=== PATIENT | female | born 1990 | race Caucasian/White ===

== ENCOUNTER 2017-04-13 13:36 | Emergency (ER) | payer MEDICAID ==
[2015-08-03 12:03] VITALS: Ht 162.6 cm; Wt 93.0 kg
[~2017-04-13] VITALS: Ht 162.6 cm; Wt 93.0 kg
[~2017-04-13 13:36] MED LIST: ACET-1966 PO; ALB0.5 INH; ALBU8.5H IH; ALBU8.5H12 IH; AMIT-108 PO; AMOX-362 PO; AZI250 PO; BACDS PO; BUS5 PO; BUTA1CAP4 PO; CEF250 PO; CEP500 PO; CIPR250S3 PO; CIT20 PO; CITA-139 PO; CLON-303 PO; CYCL-332 PO; CYCL10TA29 PO; DICL-192 PO; DICL100G39 TP; DICL100T54 PO; DOCU240C67 PO; DOXY-181 PO; DOXY-228 PO; DOXY-260 PO; DULO30CA35 PO; ETON68IM2 SQ; FAMO20TA28 PO; FERR-41 PO; GABA-549 PO; HYDR-4228 PO; IBU600 PO; IBUP800T37 PO; KET10 PO; LAMO200T46 PO; LAN30PT PO; LOR5 PO; LORA-1458 PO; LURA40TA3 PO; MECL25TA9 PO; METO-734 PO; METR-1 PO; METR-160 PO; MISO200T62 PO; NAPR375T44 PO; NIT50 PO; NO RTN MEDS; ONDA4TAB PO; ONDA4TAB9 PO; OXYC-373 PO; OXYC-865 PO; PER PO; PHEN120S16 PO; PHENA100 PO; PRAZ2CAP26 PO; PRE10 JT; PRED-1 PO; PRED20TA6 PO; PREN-127 PO; PRO25 PO; PROM-110 PO; PROM25SU3 RC; SERT20OR6 PO; SUMA6PEN7 SQ; TRA50; TYLENOL; ZOLP-350 PO; [UNRECOGNIZED DRUG - CODE] MC
--- NOTE | 2017-04-13 15:36 | ER Report ---
History and Physical Time Seen By MD: 15:31 Hx. of Stated Complaint: INJURED LOW BACK SEVERAL MONTHS AGO. REPORTS THAT RIGHT LEG AND BOTH LEGS ARE FEELING NUMB. HPI/ROS CHIEF COMPLAINT: Back pain HISTORY OF PRESENT ILLNESS: This is a 26-year-old female who presents to the emergency department for back pain. Patient states that about 2 months ago she slipped on some ice caught herself from falling while she was carrying her daughter and developed some back pain which ultimately resolved. Patient states that over the last couple weeks she's had some numbness and tingling periodically to her upper extremities bilaterally. Patient states that over the last several days she's been packing some boxes and getting ready to move when she's had some increase in her lower back pain as well as upper back pain, numbness and tingling to the upper extremities continues as well as numbness to the right lower extremely. Patient denies loss of bowel or bladder still complete control. Patient denies fevers, aches, chills, nausea vomiting or chest pain. REVIEW OF SYSTEMS: Respiratory: No cough, no dyspnea. Cardiovascular: No chest pain, no palpitations. Gastrointestinal: No vomiting, no abdominal pain. Musculoskeletal: As above. Allergies: Coded Allergies: hydrocodone (Verified Allergy, Severe, RASH/THROAT SWELLING, 11/13/16) latex (Verified Adverse Reaction, Severe, RASH, 11/13/16) adhesive (Verified Adverse Reaction, Intermediate, RASH, 11/13/16) Home Meds Active Scripts Methocarbamol (ROBAXIN-750) 750 Mg Tablet, 1500 MG PO TID Y for prn, #18 TB12 Prov:NAVJOT BARBOSA [facility]- 04/13/17 Discontinued Reported Medications Cyclobenzaprine Hcl (CYCLOBENZAPRINE HCL) 10 Mg Tablet, 10 MG PO TID, #9 TAB 08/16/16 Ciprofloxacin (CIPRO) 250 Mg/5 Ml Fifi..rec, 250 MG PO BID, BOT 08/16/16 Discontinued Scripts Ketorolac Tromethamine (KETOROLAC TROMETHAMINE) 10 Mg Tab, 10 MG PO Q6H, #20 TAB Prov:PATEL VELASQUEZ 11/13/16 Metronidazole (METRONIDAZOLE) 500 Mg Tablet, 500 MG PO TID for 7 Days, #21 TAB Prov:PATEL VELASQUEZP 08/16/16 Ketorolac Tromethamine (KETOROLAC TROMETHAMINE) 10 Mg Tab, 10 MG PO Q6H, #20 TAB Prov:PATEL VELASQUEZ [employer] 08/16/16 Butalb/Acetaminophen/Caffeine (FIORICET 50-300-40 MG CAPSULE) 1 Each Capsule, 1 EACH PO Q4H Y for HEADACHE, #0 CAPSULE Prov:MISHEL OCAMPO MD 08/28/15 Ibuprofen (IBUPROFEN) 800 Mg Tablet, 1 TAB PO Q8H, #30 TAB Take with food every 8 hours. Prov:SANIA PRINCE MD 08/06/15 Past Medical/Surgical History She has a past medical and surgical history of migraines, heart murmur, pleurisy 2, asthma, GERD, urinary tract infections, fibromyalgia, left wrist fracture, . Reviewed Nurses Notes: Yes Hx Smoking: Yes (1/2 PPD X 8 YRS) Smoking Status: Heavy Tobacco Smoker Hx Substance Use Disorder: No Hx Alcohol Use: No Constitutional Vital Sign - Last 24 Hours 04/13/17 04/13/17 13:43 18:12 Temp 98.7 Pulse 100 89 Resp 18 20 B/P (MAP) 116/76 134/86 (102) Pulse Ox 95 95 O2 Delivery Room Air Room Air Physical Exam General Appearance: The patient is alert, has no immediate need for airway protection and no current signs of toxicity. Eyes: Pupils equal and round no injection. Respiratory: Chest is non tender, lungs are clear to auscultation. Cardiac: regular rate and rhythm, no murmurs, clicks or rubs. Gastrointestinal: Abdomen is soft and non tender, no masses, bowel sounds normal. Musculoskeletal: Neck: Neck is supple and non tender. Extremities have full range of motion and are non tender. At the time of my exam no numbness or tingling, sensation intact, patient is able to give me a thumbs up, cross her index and middle fingers bilaterally. Patient is able to abduct fingers without difficulties and is able to hold the abduction while I'm compressing fingers. Patient is able to lift both lower externally is off the gurney. Patient does have some lower back irritation with right straight leg raise. Denies shooting pain down the right buttock. Skin: No rashes or lesions. DIFFERENTIAL DIAGNOSIS: After history and physical exam differential diagnosis was considered for back pain including but not limited to muscular pain, herniated disc, spine fracture, intra-abdominal causes and urinary tract infection. Medical Decision Making EKG/Imaging Imaging Location[place] [facility] [place] Patient: Janeth Real : 1990 Visit/Account:[id number] Date of Sevice: 04/13/2017 THORACIC SPINE 3 VIEWS HISTORY: back pain COMPARISON: 12/02/2013 FINDINGS: AP and lateral including swimmer's lateral views thoracic spine obtained. Thoracic vertebral body and disc heights well-maintained. No evidence of significant osseous degenerative change. No fracture lucency or displacement. Alignment normal. Paraspinal soft tissues within normal limits. IMPRESSION: Unremarkable exam thoracic spine. Report Dictated By: Amaury Christina MD at 04/13/2017 4:59 PM Report E-Signed By: Amaury Christina MD at 04/13/2017 5:01 PM WSN:[id number] Location[place] [facility] [place] Patient: Janeth Real : 1990 Visit/Account:[id number] Date of Sevice: 04/13/2017 LUMBAR SPINE 4 VIEWS HISTORY: back pain COMPARISON: 12/02/2013, CT 08/16/2016 FINDINGS: AP, bilateral oblique, lateral and spot lateral views lumbosacral spine obtained. Only 4 nonrib-bearing lumbar-type vertebral bodies. Vertebral body and disc heights well-maintained. No evidence of spondylolysis or significant osseous degenerative change. No fracture lucency or displacement. Slight rightward tilt of the thoracolumbar junction, possibly positional but a finding which could also be seen in the setting of muscular spasm. IMPRESSION: Aside from potential evidence of thoracolumbar muscular spasm, otherwise unremarkable exam lumbar spine. Report Dictated By: Amaury Christina MD at 04/13/2017 4:53 PM Report E-Signed By: Amaury Christina MD at 04/13/2017 4:59 PM WSN:[id number] ED Course/Re-evaluation ED Course The patient was admitted to room. A history physical were obtained. Differential diagnoses were considered. A thoracic and lumbar x-ray was ordered which was negative for any acute finding. I did reassure the patient that this is likely just musculoskeletal pain and that she should follow-up with her primary care provider. Patient was also given 800 mg of ibuprofen in the emergency department. Patient was also sent with a prescription for Robaxin. Patient was encouraged to take ibuprofen when she is at home. Patient was also encouraged to follow-up with [facility] for her continued back pain. Patient was also encouraged to return to emergency department for any other concerns such as loss of bowel or bladder saddle paresthesias or severe fevers with back pain. Patient had no other questions or concerns at this time and was discharged home. Decision to Disposition Date: Apr 13, 2017 Decision to Disposition Time: 18:00 Depart Departure Latest Vital Signs Vital Signs Date Time Temp Pulse Resp B/P (MAP) Pulse Ox O2 Delivery O2 Flow Rate FiO2 04/13/17 18:12 89 20 134/86 (102) 95 Room Air 04/13/17 13:43 98.7 Impression: Primary Impression: Back pain Condition: Improved Disposition: HOME OR SELF-CARE Referrals: SANIA ADAMS MD (PCP) New Scripts Methocarbamol (ROBAXIN-750) 750 Mg Tablet 1500 MG PO TID Y for prn, #18 TB12 Prov: NAVJOT BARBOSA 04/13/17 Patient Instructions: Acute Low Back Pain (ED), Back Pain (GEN) Additional Instructions: Drink plenty of water. Get plenty of rest. Take 800 mg of ibuprofen every 8 hours as needed for back pain. Take the Robaxin up to 3 times a day as needed for muscle spasms. Follow-up with your primary care provider for any other concerns rehabilitation. Contact physical therapy. May return to the emergency department for any other concerns or worsening symptoms. Problem Qualifiers Primary Impression: Back pain Back pain location: low back pain Chronicity: unspecified Back pain laterality: bilateral Sciatica presence: without sciatica Qualified Codes: M54.5 - Low back pain NAVJOT BARBOSA-BC Apr 13, 2017 15:36
[2017-04-13] MEDS ORDERED: IBUPROFEN 800 MG TAB PO ONE (15:50)
--- NOTE | 2017-04-13 17:03 | RADIOLOGY IMAGING REPORT ---
FACILITY: [facility] PATIENT NAME: Janeth Real : 1990 MR: [id number] V: [id number] EXAM DATE: ORDERING PHYSICIAN: NAVJOT BARBOSA TECHNOLOGIST: Location: [facility] [place] Patient: Janeth Real : 1990 Visit/Account:[id number] Date of Sevice: 04/13/2017 LUMBAR SPINE 4 VIEWS HISTORY: back pain COMPARISON: 12/02/2013, CT 08/16/2016 FINDINGS: AP, bilateral oblique, lateral and spot lateral views lumbosacral spine obtained. Only 4 nonrib-bearing lumbar-type vertebral bodies. Vertebral body and disc heights well-maintained. No evidence of spondylolysis or significant osseous degenerative change. No fracture lucency or displ acement. Slight rightward tilt of the thoracolumbar junction, possibly positional but a finding which could al so be seen in the setting of muscular spasm. IMPRESSION: Aside from potential evidence of thoracolumbar muscular spasm, otherwise unremarkable exam lumbar spi ne. Report Dictated By: Amaury Christina MD at 04/13/2017 4:53 PM Report E-Signed By: Amaury Christina MD at 04/13/2017 4:59 PM WSN:[id number]
--- NOTE | 2017-04-13 17:06 | RADIOLOGY IMAGING REPORT ---
FACILITY: [facility] PATIENT NAME: Janeth Real : 1990 MR: [id number] V: [id number] EXAM DATE: ORDERING PHYSICIAN: NAVJOT BARBOSA TECHNOLOGIST: Location: [facility] - [place] Patient: Janeth Real : 1990 Visit/Account:[id number] Date of Sevice: 04/13/2017 THORACIC SPINE 3 VIEWS HISTORY: back pain COMPARISON: 12/02/2013 FINDINGS: AP and lateral including swimmer's lateral views thoracic spine obtained. Thoracic vertebral body and disc heights well-maintained. No evidence of significant osseous degenera tive change. No fracture lucency or displacement. Alignment normal. Paraspinal soft tissues within normal limits. IMPRESSION: Unremarkable exam thoracic spine. Report Dictated By: Amaury Christina MD at 04/13/2017 4:59 PM Report E-Signed By: Amaury Christina MD at 04/13/2017 5:01 PM WSN:[id number]
[2017-04-13] MEDS ORDERED: METH-543 PO (18:02)
[2017-04-13 18:12] VITALS: BP 134/86
== END 2017-04-13 18:13 | disposition home or self-care (01) ==
LOC: ER 14:02
DX: M54.5 Low back pain (principal)
CPT/HCPCS: 72072; 72120; 99282

== ENCOUNTER 2017-05-03 15:09 | Emergency (ER) | payer MEDICAID ==
[2015-08-03 12:03] VITALS: Wt 93.0 kg
[~2017-05-03 15:09] MED LIST changes: +METH-543 PO; +SERT-173 PO; -SERT20OR6 PO
--- NOTE | 2017-05-03 15:13 | ER Report ---
History and Physical Time Seen By MD: 15:13 (ANTHONY CARPENTER DO) HPI/ROS CHIEF COMPLAINT: abdominal pain HISTORY OF PRESENT ILLNESS: PT a few days ago aohd pain in luq and l flank that lasted a few minutes and subsided. Today at noon started with LUQ abd pain that is sharp and achy. + vomited with the pain. PT went to [facility] but was sent to ed for further evaluation. Stitches did do a urine which showed + blood, + ketones and + leuks. PT denies dysuria. Pt states she did have loose stools last day or so. no fevers. no chills. [place] fine today until 12. PT arrived to ed crying secondary to pain. REVIEW OF SYSTEMS: Constitutional: No fever, no chills. Eyes: No discharge. ENT: No sore throat. Cardiovascular: No chest pain, no palpitations. Respiratory: No cough, no shortness of breath. Gastrointestinal: + abdominal pain, + vomiting. Genitourinary: No hematuria. Musculoskeletal: No back pain. Skin: No rashes. Neurological: No headache. (PAULINEANTHONY Weinstein DO) Allergies: Coded Allergies: hydrocodone (Verified Allergy, Severe, RASH/THROAT SWELLING, 05/03/17) latex (Verified Adverse Reaction, Severe, RASH, 05/03/17) adhesive (Verified Adverse Reaction, Intermediate, RASH, 05/03/17) Home Meds Active Scripts Promethazine Hcl (PROMETHAZINE HCL) 25 Mg Tablet, 25 MG PO Q4H Y for NAUSEA/ VOMITING, #8 TAB Prov:FRANKLIN FREITAS DO 05/03/17 Oxycodone Hcl/Acetaminophen (PERCOCET 5-325 MG TABLET) 1 Each Tablet, 1 EACH PO Q4-6H Y for PAIN, #8 Prov:FRANKLIN FREITAS DO 05/03/17 Doxycycline Hyclate (DOXYCYCLINE HYCLATE) 100 Mg Capsule, 100 MG PO BID, #14 CAPSULE Prov:FRANKLIN FREITAS DO 05/03/17 Discontinued Scripts Methocarbamol (ROBAXIN-750) 750 Mg Tablet, 1500 MG PO TID Y for prn, #18 TB12 Prov:NAVJOT BARBOSA [employer]-BC 04/13/17 Past Medical/Surgical History Pmhx: migraines, heart murmur, hx of pleurisy x2 episodes, asthma, GERD, frequent UTI, fibromyalgia, 2001: left wrist fracture, RLE fracture, depression/ anxiety, history of suicide attempt, kidney stone Pshx: (PAULINEANTHONY Corinna ) Hx Smoking: Yes (1/2 PPD X 8 YRS) Smoking Status: Heavy Tobacco Smoker Hx Substance Use Disorder: No Hx Alcohol Use: No (ANTHONY CARPENTER DO) Constitutional Vital Sign - Last 24 Hours 05/03/17 05/03/17 05/03/17 05/03/17 15:09 15:15 15:16 15:24 Temp 98.8 Pulse ??? 117 104 Resp 20 B/P (MAP) 147/92 (110) 147/92 Pulse Ox 95 96 O2 Delivery Room Air 05/03/17 05/03/17 05/03/17 05/03/17 15:30 15:39 15:54 16:09 Pulse 86 86 ??? B/P (MAP) 120/79 (93) Pulse Ox 95 96 05/03/17 05/03/17 05/03/17 05/03/17 16:24 16:30 16:39 16:54 Pulse 87 70 78 B/P (MAP) 118/62 (80) Pulse Ox 95 98 98 05/03/17 05/03/17 05/03/17 05/03/17 17:00 17:30 18:00 19:17 Pulse 85 Resp 16 B/P (MAP) 102/69 (80) 106/69 (81) 113/71 (85) 102/72 (82) Pulse Ox 95 O2 Delivery Room Air (MARKUS FREITASY Breonna MAYNARD) Physical Exam General Appearance: The patient is alert, has no immediate need for airway protection and no signs of toxicity. Eyes: Pupils equal and round no pallor or injection, EOMI ENT: no pharyngeal erythema or exudates, Mucous membranes are moist, TM are nl b/l Respiratory: There are no retractions, lungs are clear to auscultation. Cardiovascular: Regular rate and rhythm. pulses are equal and symmetrical Gastrointestinal: Abdomen is soft . + LUQ and LLQ tenderness on exam, no masses , bowel sounds normal, no guarding, no rigidity or rebound Neurological: Cranial nerves II-XII grossly intact, no sensory or motor loss Skin: Warm and dry, no rashes. Musculoskeletal: Neck is supple non tender, no vertebral tenderness, + L CVA tender Extremities are nontender, non swollen and have full range of motion. DIFFERENTIAL DIAGNOSIS: After history and physical exam differential diagnosis was considered for kidney stone, diverticulitis (PAULINE,ANTHONY V DO) Medical Decision Making Data Points Result Diagram: 05/03/17 1526 05/03/17 1526 Laboratory Hematology Test 05/03/17 15:26 05/03/17 17:04 Red Blood Count 4.95 M/uL (4.17-5.56) Mean Corpuscular Volume 87.0 fL (80.0-96.0) Mean Corpuscular Hemoglobin 30.4 pg (26.0-33.0) Mean Corpuscular Hemoglobin Concent 34.9 g/dL (32.0-36.0) Red Cell Distribution Width 13.3 % (11.5-14.5) Mean Platelet Volume 8.9 fL (7.2-11.1) Neutrophils (%) (Auto) 49.9 % (39.4-72.5) Lymphocytes (%) (Auto) 33.6 % (17.6-49.6) Monocytes (%) (Auto) 10.8 % (4.1-12.4) Eosinophils (%) (Auto) 3.0 % (0.4-6.7) Basophils (%) (Auto) 2.7 % (0.3-1.4) Nucleated RBC Relative Count (auto) 0.3 /100WBC Neutrophils # (Auto) 3.1 K/uL (2.0-7.4) Lymphocytes # (Auto) 2.1 K/uL (1.3-3.6) Monocytes # (Auto) 0.7 K/uL (0.3-1.0) Eosinophils # (Auto) 0.2 K/uL (0.0-0.5) Basophils # (Auto) 0.2 K/uL (0.0-0.1) Nucleated RBC Absolute Count (auto) 0.02 K/uL Sodium Level 140 mmol/L (137-145) Potassium Level 3.6 mmol/L (3.5-5.0) Chloride Level 109 mmol/L (98-107) Carbon Dioxide Level 17 mmol/L (22-31) Blood Urea Nitrogen 9 mg/dl (7-18) Creatinine 0.80 mg/dl (0.52-1.04) Glomerular Filtration Rate Calc > 60.0 Random Glucose 88 mg/dl (75-110) Calcium Level 9.0 mg/dl (8.4-10.2) Total Bilirubin 0.3 mg/dl (0.2-1.3) Aspartate Amino Transf (AST/SGOT) 23 U/L (0-35) Alanine Aminotransferase (ALT/SGPT) 44 U/L (0-56) Alkaline Phosphatase 73 U/L (0-126) Total Protein 7.1 gm/dl (6.3-8.2) Albumin 4.1 g/dl (3.5-5.0) Lipase 51 U/L (23-300) Human Chorionic Gonadotropin, Qual Negative (NEGATIVE) Urine Color Yellow Urine Clarity Clear Urine pH 6.0 pH (4.8-9.5) Urine Specific [place] 1.010 Urine Protein Negative mg/dL (NEGATIVE) Urine Glucose (UA) Negative mg/dL (NEGATIVE) Urine Ketones Negative mg/dL (NEGATIVE) Urine Blood Small (NEGATIVE) Urine Nitrite Negative (NEGATIVE) Urine Bilirubin Negative (NEGATIVE) Urine Urobilinogen 2.0 mg/dL (0.2-1.9) Urine Leukocyte Esterase Negative (NEGATIVE) Urine RBC 2 /HPF (0-2/HPF) Urine WBC 1 /HPF (0-5/HPF) Urine Squamous Epithelial Cells Few /LPF (NONE-FEW) Urine Bacteria Negative /HPF (NONE-FEW) Urine Mucus None /HPF (NONE-FEW) Chemistry Test 05/03/17 15:26 05/03/17 17:04 White Blood Count 6.2 k/uL (4.5-11.0) Red Blood Count 4.95 M/uL (4.17-5.56) Hemoglobin 15.0 g/dL (12.0-16.0) Hematocrit 43.1 % (34.0-47.0) Mean Corpuscular Volume 87.0 fL (80.0-96.0) Mean Corpuscular Hemoglobin 30.4 pg (26.0-33.0) Mean Corpuscular Hemoglobin Concent 34.9 g/dL (32.0-36.0) Red Cell Distribution Width 13.3 % (11.5-14.5) Platelet Count 206 K/uL (150-450) Mean Platelet Volume 8.9 fL (7.2-11.1) Neutrophils (%) (Auto) 49.9 % (39.4-72.5) Lymphocytes (%) (Auto) 33.6 % (17.6-49.6) Monocytes (%) (Auto) 10.8 % (4.1-12.4) Eosinophils (%) (Auto) 3.0 % (0.4-6.7) Basophils (%) (Auto) 2.7 % (0.3-1.4) Nucleated RBC Relative Count (auto) 0.3 /100WBC Neutrophils # (Auto) 3.1 K/uL (2.0-7.4) Lymphocytes # (Auto) 2.1 K/uL (1.3-3.6) Monocytes # (Auto) 0.7 K/uL (0.3-1.0) Eosinophils # (Auto) 0.2 K/uL (0.0-0.5) Basophils # (Auto) 0.2 K/uL (0.0-0.1) Nucleated RBC Absolute Count (auto) 0.02 K/uL Glomerular Filtration Rate Calc > 60.0 Calcium Level 9.0 mg/dl (8.4-10.2) Total Bilirubin 0.3 mg/dl (0.2-1.3) Aspartate Amino Transf (AST/SGOT) 23 U/L (0-35) Alanine Aminotransferase (ALT/SGPT) 44 U/L (0-56) Alkaline Phosphatase 73 U/L (0-126) Total Protein 7.1 gm/dl (6.3-8.2) Albumin 4.1 g/dl (3.5-5.0) Lipase 51 U/L (23-300) Human Chorionic Gonadotropin, Qual Negative (NEGATIVE) Urine Color Yellow Urine Clarity Clear Urine pH 6.0 pH (4.8-9.5) Urine Specific [place] 1.010 Urine Protein Negative mg/dL (NEGATIVE) Urine Glucose (UA) Negative mg/dL (NEGATIVE) Urine Ketones Negative mg/dL (NEGATIVE) Urine Blood Small (NEGATIVE) Urine Nitrite Negative (NEGATIVE) Urine Bilirubin Negative (NEGATIVE) Urine Urobilinogen 2.0 mg/dL (0.2-1.9) Urine Leukocyte Esterase Negative (NEGATIVE) Urine RBC 2 /HPF (0-2/HPF) Urine WBC 1 /HPF (0-5/HPF) Urine Squamous Epithelial Cells Few /LPF (NONE-FEW) Urine Bacteria Negative /HPF (NONE-FEW) Urine Mucus None /HPF (NONE-FEW) Urinalysis Test 05/03/17 17:04 Urine Color Yellow Urine Clarity Clear Urine pH 6.0 pH (4.8-9.5) Urine Specific [place] 1.010 Urine Protein Negative mg/dL (NEGATIVE) Urine Glucose (UA) Negative mg/dL (NEGATIVE) Urine Ketones Negative mg/dL (NEGATIVE) Urine Blood Small (NEGATIVE) Urine Nitrite Negative (NEGATIVE) Urine Bilirubin Negative (NEGATIVE) Urine Urobilinogen 2.0 mg/dL (0.2-1.9) Urine Leukocyte Esterase Negative (NEGATIVE) Urine RBC 2 /HPF (0-2/HPF) Urine WBC 1 /HPF (0-5/HPF) Urine Squamous Epithelial Cells Few /LPF (NONE-FEW) Urine Bacteria Negative /HPF (NONE-FEW) Urine Mucus None /HPF (NONE-FEW) (FRANKLIN FREITAS DO) Microbiology Microbiology Date/Time Source Procedure Growth Status 05/03/17 17:04 Cervical Wet Prep - Final Complete (FRANKLIN FREITAS DO) EKG/Imaging Imaging Results: Ultrasound of the pelvic was obtained. The results of the study are Examination: Pelvic ultrasound Comparison: CT same day. History: Left lower quadrant pain. Findings: Standard endovaginal pelvic ultrasound with color flow and spectral analysis. Uterus: Uterus measurement: 5.9 x 4.1 x 6.3 cm Endometrium measurement: 12 mm The endometrium and myometrium are homogeneous with no suspicious mass or vascular abnormality identified. Adnexa: Right ovary: 4.5 x 2.8 x 2.2 cm; 14.21 mL. Corpus luteum. There are a few subcentimeter simple follicles. No suspicious ovarian or adnexal mass. Normal waveforms on Doppler interrogation. Left ovary: 3.2 x 1.9 x 1.9 cm; 6.10 mL . There are a few subcentimeter simple appearing follicles. No suspicious ovarian or adnexal mass. Normal arterial and venous flow is documented within the ovary on Doppler evaluation. Free fluid: None Urinary bladder: Unremarkable. IMPRESSION: No sonographic findings of acute disease in the pelvis. The study was read by the radiologist. I viewed the images myself on the PACS system. (FRANKLIN FREITAS DO) ED Course/Re-evaluation Clinical Indication for ER IV: IV Access ED Course 05/03/2017 3:26:22 pm Will start IV and give pain medication and nausea meds. PT states she can take percocet or morphine. States only allergic to vicodin. 05/03/2017 5:09:[address] does not show any acute cause of her pain. Pt still discribes pain as 7/10 on lside of abdomen. Pelvic performed PELVIC: no drainage; + tenderness Left adnexa on exam; + cmt; non tender r adnexa Will obtain US of pelvis. 05/03/2017 5:56:15 pm Pts wet prep shows wbcs. Awaiting US. signed out to Dr. Freitas. Decision to Disposition Date: May 03, 2017 (GABRIELLACHERIEANTHONY DO) Clinical Indication for ER IV: IV Access ED Course 05/03/2017 6:42:13 pm chart reviewed, patient seen and briefly examined. Ultrasound results discussed. Patient was cervical motion tenderness and white cells on her wet prep. However, no organisms were noted. GC and chlamydia are pending. Patient be treated for pelvic inflammatory disease. She'll be given 1 g of Rocephin IV. Zithromax 1000 mg by mouth. She'll be given a course of doxycycline 100 mg by mouth twice a day. She'll be discharged home with a limited supply of Percocet and Phenergan for symptomatically relief. Patient be advised to follow-up with her primary care if unimproved in 3-5 days. Decision to Disposition Date: May 03, 2017 Decision to Disposition Time: 18:42 (FRANKLIN FREITAS DO) Depart Departure Latest Vital Signs Vital Signs Date Time Temp Pulse Resp B/P (MAP) Pulse Ox O2 Delivery O2 Flow Rate FiO2 05/03/17 19:17 85 16 102/72 (82) 95 Room Air 05/03/17 15:16 98.8 (FRANKLIN FREITAS DO) Impression: Primary Impression: Pelvic inflammatory disease Additional Impression: Left sided abdominal pain Condition: Improved Disposition: HOME OR SELF-CARE Referrals: SANIA ADAMS MD (PCP) New Scripts Promethazine Hcl (PROMETHAZINE HCL) 25 Mg Tablet 25 MG PO Q4H Y for NAUSEA/VOMITING, #8 TAB Prov: FRANKLIN FREITAS DO 05/03/17 Oxycodone Hcl/Acetaminophen (PERCOCET 5-325 MG TABLET) 1 Each Tablet 1 EACH PO Q4-6H Y for PAIN, #8 Prov: FRANKLIN FREITAS DO 05/03/17 Doxycycline Hyclate (DOXYCYCLINE HYCLATE) 100 Mg Capsule 100 MG PO BID, #14 CAPSULE Prov: FRANKLIN FREITAS DO 05/03/17 Patient Instructions: Pelvic Inflammatory Disease (ED) Additional Instructions: Take ibuprofen 200 mg 3 tablets 3 times a day with food Apply heating pad to your affected area Follow-up with your primary care if unimproved in 3-5 days Problem Qualifiers ANTHONY CARPENTER V DO May 03, 2017 15:13 FRANKLIN FREITAS DO May 03, 2017 18:48
[2017-05-03] MEDS ORDERED: ONDANSETRON 4 MG/2 ML VIAL IVP ONE (15:20)
[2017-05-03] MEDS ORDERED: NS(*) 0.9% 1000 ML BAG 1,000 ML IV ONE ×2 (15:20→17:05)
[2017-05-03] MEDS ORDERED: MORPHINE 4 MG/ML SDV IVP ONE ×2 (15:20→18:35)
[2017-05-03] MEDS ORDERED: IOPAMIDOL 76% 100 ML INFUS BTL 100 ML ONE (15:30)
[2017-05-03 15:40] LABS: PLATELET COUNT, AUTOMATED 206 K/uL (150-450)
--- NOTE | 2017-05-03 16:35 | RADIOLOGY IMAGING REPORT ---
FACILITY: [facility] PATIENT NAME: Janeth Real : 1990 MR: [id number] V: [id number] EXAM DATE: ORDERING PHYSICIAN: ANTHONY CARPENTER TECHNOLOGIST: Location: [facility] Patient: Janeth Real : 1990 Visit/Account:[id number] Date of Sevice: 05/03/2017 ABDOMEN/PELVIS WITH CONTRAST HISTORY: Left flank and left lower quadrant abdominal pain. TECHNIQUE: CT abdomen and pelvis with intravenous contrast. One of the following dose optimization techniques was utilized in the performance of this exam: Autom ated exposure control; adjustment of the mA and/or kV according to the patient's size; or use of an i terative reconstruction technique. Specific details can be referenced in the facility's radiology C T exam operational policy. CONTRAST: 100 mL Isovue-370. COMPARISON: CT dated November 13, 2016. CT chest dated December 06, 2011. FINDINGS: Visualized lung bases: 2 mm pleural based nodule within the visualized right middle lobe which is un changed since 2011 and benign given chronicity. Otherwise negative. Hepatobiliary: Negative. Spleen: Negative. Adrenals: Negative. Pancreas: Negative. Kidneys/: Uterus is retroverted. No visualized urolithiasis or hydronephrosis. Otherwise negative. GI: Negative. Appendix is normal. Vessels/spaces/nodes: Negative. Bones/soft tissues: Sclerotic focus within the left sacral ala, likely representing a benign bone is land, unchanged. IMPRESSION: No acute findings. No CT explanation for the patient's clinical symptoms. Report Dictated By: South Staton MD at 05/03/2017 4:27 PM Report E-Signed By: South Staton MD at 05/03/2017 4:32 PM WSN:[id number]
[2017-05-03] MEDS ORDERED: KETOROLAC 30 MG/ML VIAL IVP ONE (17:05)
[2017-05-03] MEDS ORDERED: AZITHROMYCIN 250 MG TAB PO ONE (18:35)
[2017-05-03] MEDS ORDERED: cefTRIAXone(*) 1 GM VIAL 1 GM in NS(*) 0.9% 100 ML ADDVANT BAG 100 ML IVPB ONE (18:35)
[2017-05-03] MEDS ORDERED: AZITHROMYCIN 250 MG TAB ONE (18:43)
[2017-05-03] MEDS ORDERED: PROM-110 PO (18:47)
[2017-05-03] MEDS ORDERED: OXYC-865 PO (18:47)
[2017-05-03] MEDS ORDERED: DOXY-181 PO (18:47)
--- NOTE | 2017-05-03 18:56 | RADIOLOGY IMAGING REPORT ---
[place]AC[place] [facility] [place] NAME: Janeth Real : 1990 MR: [id number] V: [id number] EXAM DATE: ORDERING PHYSICIAN: ANTHONY CARPENTER TECHNOLOGIST: Location: [facility] - [place] Patient: Janeth Real : 1990 Visit/Account:[id number] Date of Sevice: 05/03/2017 Examination: Pelvic ultrasound Comparison: CT same day. History: Left lower quadrant pain. Findings: Standard endovaginal pelvic ultrasound with color flow and spectral analysis. Uterus: Uterus measurement: 5.9 x 4.1 x 6.3 cm Endometrium measurement: 12 mm The endometrium and myometrium are homogeneous with no suspicious mass or vascular abnormality identi fied. Adnexa: Right ovary: 4.5 x 2.8 x 2.2 cm; 14.21 mL. Corpus luteum. There are a few subcentimeter simple follic les. No suspicious ovarian or adnexal mass. Normal waveforms on Doppler interrogation. Left ovary: 3.2 x 1.9 x 1.9 cm; 6.10 mL . There are a few subcentimeter simple appearing follicles. N o suspicious ovarian or adnexal mass. Normal arterial and venous flow is documented within the ovary on Doppler evaluation. Free fluid: None Urinary bladder: Unremarkable. IMPRESSION: No sonographic findings of acute disease in the pelvis. Report Dictated By: Tom Park MD at 05/03/2017 6:49 PM Report E-Signed By: Tom Park MD at 05/03/2017 6:52 PM WSN:[id number]
[2017-05-03 19:17] VITALS: BP 102/72
[2017-05-03] MEDS ORDERED: PROMETHAZINE HCL 25 MG TAB TH 2 TAB/BOTTLE PO ONE (19:30)
[2017-05-03] MEDS ORDERED: oxyCODONE/ACETAMIN 5/325MG TH 2 TAB/BOTTLE PO ONE (19:30)
== END 2017-05-03 19:34 | disposition home or self-care (01) ==
LOC: ER 15:13
DX: N73.9 Female pelvic inflammatory disease, unspecified (principal); R10.12 Left upper quadrant pain
CPT/HCPCS: 74177; 76830; 81001; 83690; 84703; 85025; 87088; 87210; 87491; 87591; 96361; 96365; 96375; 96376; 99284; J0696; J1885; J2270; J2405; J7030; J7050; Q0144; Q9967; 82040; 82247; 82310; 82374; 82435; 82565; 82947; 84075; 84132; 84155; 84295; 84450; 84460; 84520

== ENCOUNTER → 2017-05-20 | Outpatient (REF) | payer MEDICAID ==
[2015-08-03 12:03] VITALS: BMI 37.8
[2017-05-20 18:08] LABS: PLATELET COUNT, AUTOMATED 274 K/uL (150-450)
== END ==
PROVIDERS: ATTEND Nurse Practitioner Family
DX: R10.11 Right upper quadrant pain (principal)
CPT/HCPCS: 82040; 82150; 82247; 82310; 82374; 82435; 82565; 82947; 83690; 84075; 84132; 84155; 84295; 84450; 84460; 84520; 85025

== ENCOUNTER → 2017-05-20 | Outpatient (CLI) | payer MEDICAID ==
[2015-08-03 12:03] VITALS: BMI 37.8
--- NOTE | 2017-05-20 19:17 | RADIOLOGY IMAGING REPORT ---
FACILITY: [facility] - [place] PATIENT NAME: Janeth Real : 1990 MR: [id number] V: [id number] EXAM DATE: ORDERING PHYSICIAN: SANIA MCKINLEY TECHNOLOGIST: Location: [facility] Patient: Janeth Real : 1990 Visit/Account:[id number] Date of Sevice: 05/20/2017 INDICATION: . Right upper quadrant pain DATE: 05/20/2017 7:07 PM. TECHNIQUE: Gallbladder ultrasound COMPARISON: CT abdomen and pelvis May 03, 2017 FINDINGS: The aorta and IVC are patent within the imaged region. The pancreas is suboptimally imaged. Liver echogenicity is similar to the right renal cortex. The right lobe measures 16 cm craniocaudal. No ascites. No wall thickening. The wall measures 2 mm. The common bile duct measures 2-3 mm. The scout leaser gunter s report a positive sonographic Gardner sign. There are no shadowing stones. The right kidney measures 12.2 x 3.9 x 6.3 cm with normal cortical thickness and echogenicity. No hyd ronephrosis or collecting system obstruction. IMPRESSION: 1. The scout leaser reports a positive sonographic Gardner sign, but there are no imaging findings of c holecystitis. Report Dictated By: Sravan Owens MD at 05/20/2017 7:07 PM Report E-Signed By: Sravan Owens MD at 05/20/2017 7:12 PM WSN:[id number]
== END ==
LOC: US 18:22
PROVIDERS: ATTEND Nurse Practitioner Family
DX: R19.8 Other specified symptoms and signs involving the digestive system and abdomen (principal)
CPT/HCPCS: 76705

== ENCOUNTER → 2017-05-28 | Outpatient (CLI) | payer MEDICAID ==
[2015-08-03 12:03] VITALS: BMI 37.8
[~2017-05-28] MED LIST changes: +IBUP200C71 PO; +METO-733 PO; +SINCALIDE 5 MCG VIAL INJ ONE; +WATER FOR INJ,STERILE 20 ML 20 ML ONE
--- NOTE | 2017-05-28 11:08 | RADIOLOGY IMAGING REPORT ---
FACILITY: [facility] - [place] PATIENT NAME: Janeth Real : 1990 MR: [id number] V: [id number] EXAM DATE: ORDERING PHYSICIAN: ROOSEVELT GURROLA TECHNOLOGIST: Location: [facility] Patient: Janeth Real : 1990 Visit/Account:[id number] Date of Sevice: 05/28/2017 GALLBLADDER W KINEVAC INDICATION: Right upper quadrant pain COMPARISON: May 20, 2017 FINDINGS: The gallbladder is normal without stone, wall thickening or pericholecystic fluid. 4.4 mL Kinevac was injected with subsequent imaging of the gallbladder at multiple time points up to 30 minutes. Pre-Kinevac injection gallbladder volume measured 48.4 mL. Gallbladder volume 30 minutes postinjecti on measured 52.4 mL. Positive Gardner sign noted throughout the exam. Nausea was experienced following Kinevac injection. IMPRESSION: No gallstones, gallbladder wall thickening or pericholecystic fluid. Essentially unchanged gallbladder volume pre and post Kinevac injection up to 30 minutes postinjectio n. See comments above. Report Dictated By: South Huitron MD at 05/28/2017 10:58 AM Report E-Signed By: South Huitron MD at 05/28/2017 11:04 AM WSN:[email or web address]
== END ==
LOC: US 02:49
PROVIDERS: ATTEND Surgery
DX: R10.11 Right upper quadrant pain (principal)
CPT/HCPCS: 76705; J2805

== ENCOUNTER 2017-06-02 01:22 | Day surgery (SDC) | payer MEDICAID ==
[2015-08-03 12:03] VITALS: Ht 162.6 cm; Wt 108.9 kg
--- NOTE | 2017-05-29 16:21 | HISTORY AND PHYSICAL ---
DATE OF ADMISSION: June 02, 2017 CHIEF COMPLAINT Right upper quadrant pain. HISTORY OF PRESENT ILLNESS This is a 26-year-old female with a two-week history of right upper quadrant pain. It is a sharp pain. It radiates through to the back. She has associated nausea. Pain is worse with food intake. She has had some loose bowel movements. She has had no fever. She was seen at Urgent Care. Her lab work was normal. CBC, UA, and chemistry panel were normal. She had an ultrasound of the gallbladder which was normal. She then underwent an ultrasound with Kinevac stimulation which showed no contractility of the gallbladder and reproduction of her pain. ALLERGIES She has allergies to ADHESIVES, LASIX, LATEX, and VICODIN. CURRENT MEDICATIONS 1. Ibuprofen. 2. Zofran. PAST MEDICAL HISTORY/OPERATIONS 1. Bilateral tubal ligation. 2. . 3. D and C. REVIEW OF SYSTEMS No cardiac, pulmonary, liver of kidney disease, diabetes, or hypertension. No history of deep vein thrombosis. PHYSICAL EXAMINATION GENERAL: A 26-year-old female in no acute distress. LUNGS: Clear. HEART: Regular rhythm. ABDOMEN: She has tenderness in the right upper quadrant. IMPRESSION Acalculous cholecystitis. PLAN We will do a laparoscopic cholecystectomy with robot assist. We discussed the procedure, complications, and recovery time. She seems to understand and wished to proceed. RICARDO
[~2017-06-02] VITALS: Ht 162.6 cm; Wt 108.9 kg
[~2017-06-02 01:22] MED LIST changes: +INDOCYANINE GREEN 25 MG VIAL IVP ONE; -SINCALIDE 5 MCG VIAL INJ ONE; -WATER FOR INJ,STERILE 20 ML 20 ML ONE
[2017-06-02] MEDS ORDERED: IOPAMIDOL 61% 75 ML INFUS BTL 0 ML ONE (06:35)
[2017-06-02] MEDS ORDERED: ROPIVACAINE 0.2% 20 ML VIAL ONE (06:35)
[2017-06-02 06:41] VITALS: BP 107/79
[2017-06-02] MEDS ORDERED: DEXAMETHASONE SOD 4 MG/ML VIAL ONE (07:18)
[2017-06-02] MEDS ORDERED: PROPOFOL EMUL(*) 10MG/ML 20 ML 20 ML ONE (07:18)
[2017-06-02] MEDS ORDERED: LIDOCAINE MPF 1% 5 ML VIAL ONE (07:18)
[2017-06-02] MEDS ORDERED: SUGAMMADEX SOD 200 MG/2 ML SDV ONE ×3 (07:18→07:45)
[2017-06-02] MEDS ORDERED: fentaNYL CITR 250 MCG/5 ML AMP ONE (07:18)
[2017-06-02] MEDS ORDERED: ONDANSETRON 4 MG/2 ML VIAL ONE (07:18)
[2017-06-02] MEDS ORDERED: ROCURONIUM BROM 10 MG/ML 10 ML ONE (07:18)
[2017-06-02] MEDS ORDERED: KETAMINE HCL 200 MG/20 ML MDV ONE (07:24)
[2017-06-02] MEDS ORDERED: KETOROLAC 30 MG/ML VIAL ONE (07:45)
[2017-06-02] MEDS ORDERED: cefOXitin/DEX(*) 2GM/50ML PREM 50 ML IVPB ONE (07:55)
[2017-06-02] MEDS ORDERED: NORMOSOL R SOLN(*) 1000 ML BAG 1,000 ML IV PRN (07:55)
[2017-06-02] MEDS ORDERED: MIDAZOLAM 2 MG/2 ML VIAL IVP PRN (07:55)
[2017-06-02] MEDS ORDERED: FAMOTIDINE 20 MG TAB PO ONE (07:55)
[2017-06-02] MEDS ORDERED: LIDOCAINE/SOD BICARB 8.4% SYR ID ONE (07:55)
[2017-06-02] MEDS ORDERED: INDOCYANINE GREEN 25 MG VIAL IVP ONE ×2 (07:55)
[2017-06-02] MEDS ORDERED: fentaNYL CITR 100 MCG/2 ML AMP ONE ×3 (08:53→09:55)
[2017-06-02] MEDS ORDERED: KET10 PO (09:08)
--- NOTE | 2017-06-02 09:08 | Post Operative Progress Note ---
Post Operative Progress Note Date: Jun 02, 2017 Time: 09:06 Surgeon: malik Anesthesia: dr eng Pre-Op Diagnosis: cholecystitis Post-Op Diagnosis: same Procedure(s): robotic laparoscopic cholecystectomy ROOSEVELT GURROLA MD Jun 02, 2017 09:07
--- NOTE | 2017-06-02 09:10 | Short(Outpt) Discharge Summary ---
Discharge Summary Reason for Hosp/Final Diag: (1) Acalculous cholecystitis Hospital Course & Plan: robotic laparoscopic cholecystectomy Departure Discharge to: Home Discharge Instructions Home Meds Active Scripts Oxycodone Hcl/Acetaminophen (PERCOCET 5-325 MG TABLET) 1 Each Tablet, 1 EACH PO Q4-6H Y for PAIN, #8 Prov:MARKUS SCOTTY Breonna DO 05/03/17 Reported Medications Ibuprofen (IBUPROFEN) 200 Mg Capsule, 2 CAP PO QHS, CAPSULE 05/29/17 Metoclopramide Hcl (REGLAN) 5 Mg Tablet, 5 MG PO PRN Y for NAUSEA 05/29/17 Discontinued Scripts Promethazine Hcl (PROMETHAZINE HCL) 25 Mg Tablet, 25 MG PO Q4H Y for NAUSEA/ VOMITING, #8 TAB Prov:FRANKLIN SCOTT DO 05/03/17 Doxycycline Hyclate (DOXYCYCLINE HYCLATE) 100 Mg Capsule, 100 MG PO BID, #14 CAPSULE Prov:FRANKLIN SCOTT DO 05/03/17 Diet: Regular Activity: As Tolerated Special Instructions: ice to incisions for 48 hours remove bandage and shower to see me in one week, call [phone] for apt ROOSEVELT GURROLA MD Jun 02, 2017 09:10
[2017-06-02] MEDS ORDERED: PROMETHAZINE 25 MG/ML 1 ML AMP ONE (09:27)
[2017-06-02] MEDS ORDERED: ACETAMINOPHEN(*)1000 MG/100 ML 100 ML IVPB ONE (10:27)
[2017-06-02] MEDS ORDERED: HYDROmorphone HCL 2 MG/ML SDV ONE (10:31)
[2017-06-02 11:00] VITALS: BP 103/69
--- NOTE | 2017-06-02 11:12 | RADIOLOGY IMAGING REPORT ---
FACILITY: [facility] PATIENT NAME: Janeth Real : 1990 MR: [id number] V: [id number] EXAM DATE: ORDERING PHYSICIAN: ROOSEVELT GURROLA TECHNOLOGIST: Location: [facility] Patient: Janeth Real : 1990 Visit/Account:[id number] Date of Sevice: 06/02/2017 Technique: KUB SINGLE VIEW ABDOMEN HISTORY: Laparoscopic cholecystectomy Comparison studies: Abdominal radiographs September 05, 2013 FINDINGS: Imaged portions of the lung bases are clear. The bowel gas pattern is nonobstructive. No radiodense foreign body. IMPRESSION: 1. No acute intra-abdominal process. No radiodense foreign body. Report Dictated By: Jatin Moreau DO at 06/02/2017 10:56 AM Report E-Signed By: Jatin Moreau DO at 06/02/2017 11:08 AM WSN:[id number]
[2017-06-02 11:15] VITALS: BP 98/63
[2017-06-02 11:16] VITALS: BP 93/62
--- NOTE | 2017-06-02 19:50 | OPERATIVE REPORT 1 ---
EVENT DATE: June 02, 2017 SURGEON: Robin Lo MD ANESTHESIOLOGIST: John Denny MD ANESTHESIA: General. PREOPERATIVE DIAGNOSIS Acalculous cholecystitis. POSTOPERATIVE DIAGNOSIS Acalculous cholecystitis. PROCEDURE PERFORMED Robotic laparoscopic cholecystectomy. DESCRIPTION OF PROCEDURE The patient was placed in the supine position and given a general anesthetic. Her abdomen was prepped and draped in a sterile fashion. We marked our port sites one palm distance beneath the right costal margin in the anterior axillary line. I made a toshia there. We then went straight across at 6 cm intervals and placed davidson. We then made a small incision just to the right of the midline and inserted a Veress needle. We insufflated the abdomen with CO2. We then placed a 5 mm port under direct vision using the InfrateliView. We then placed two 8 mm trocars at the previously marked spots under direct vision. We then placed a 12 mm trocar under direct vision laterally. We then positioned the ports to the appropriate depth. We then brought in the robot and docked it. We placed the instruments under direct vision and positioned them near the gallbladder. At this point, I went to the console, and the procedure was performed. The gallbladder was grasped and raised cephalad. We dissected it off the cystic artery and the cystic duct. We placed two clips proximally on the cystic duct, one distally, and cut between them. The cystic artery was cauterized with the bipolar cautery and divided with the scissors. We then used electrocautery and dissected the gallbladder from the bed of the liver. This dissection went very nicely. We had excellent hemostasis. The gallbladder was then placed in an Endo Pouch and removed from the lateral port site. At this point, we suctioned, irrigated, and inspected for bleeding. We had perfect hemostasis. Note should be made that we did use the ICG during the case and during the initial dissection. We used the ICG to verify the cystic duct and the common bile duct prior to our dissection of the cystic duct. At this point, we suctioned, irrigated, and had perfect hemostasis. We then undocked the robot and removed it from the field. The 12 mm lateral port was closed with an 0 Vicryl. The other ports were removed under direct vision. No bleeding was noted. The skin was closed with interrupted 4-0 Maxon. Steri- Strips and an Airstrip were placed. The patient tolerated the procedure well. No apparent complications. MTDD
== END 2017-06-02 11:00 | disposition home or self-care (01) ==
LOC: OR 01:22
PROVIDERS: ATTEND Surgery
DX: K81.9 Cholecystitis, unspecified (principal)
CPT/HCPCS: 47562; 74018; 81025; 88304; J0131; J0694; J1100; J1170; J1885; J2001; J2250; J2405; J2550; J2704; J2795; J3010; J3490; S2900; Q9967

== ENCOUNTER → 2017-06-15 | Outpatient (CLI) | payer MEDICAID ==
[2015-08-03 12:03] VITALS: BMI 37.8
[~2017-06-15] MED LIST changes: -INDOCYANINE GREEN 25 MG VIAL IVP ONE; +IOPAMIDOL 76% 75 ML INFUS BTL 75 ML ONE
--- NOTE | 2017-06-15 11:43 | RADIOLOGY IMAGING REPORT ---
FACILITY: [facility] - [place] PATIENT NAME: Janeth Real : 1990 MR: [id number] V: [id number] EXAM DATE: ORDERING PHYSICIAN: CIRILO CHAVARRIA TECHNOLOGIST: [place] [facility] [place] Janeth Real : 1990 Visit/Account:[id number] Date of Sevice: 06/15/2017 ABDOMEN/PELVIS W/WO CONTRAST HISTORY: Gallbladder removed 2 weeks ago. Abdominal pain which has gradually worsened TECHNIQUE: CT abdomen and pelvis without and with intravenous contrast. One of the following dose optimization techniques was utilized in the performance of this exam: Autom ated exposure control; adjustment of the mA and/or kV according to the patient's size; or use of an i terative reconstruction technique. Specific details can be referenced in the facility's radiology C T exam operational policy. CONTRAST: 80 mL Isovue-370. COMPARISON: CT dated 05/03/2017. FINDINGS: Visualized lung bases: Negative. Hepatobiliary: Mild hepatic steatosis. Gallbladder surgically absent. There is no postoperative co mplications identified. No biliary ductal dilatation. Spleen: Negative. Adrenals: Negative. Pancreas: Negative. Kidneys/: Negative. GI: Negative. The appendix is unremarkable. Vessels/spaces/nodes: Negative. Bones/soft tissues: Postsurgical changes within the anterolateral mid right ventral abdominal wall w ithout visualized complication. IMPRESSION: 1. No acute findings. 2. Cholecystectomy without visualized postoperative complication. Report Dictated By: South Staton MD at 06/15/2017 11:34 AM Report E-Signed By: South Staton MD at 06/15/2017 11:38 AM WSN:[id number]
== END ==
LOC: CT 10:43
PROVIDERS: ATTEND Physician Assistant Medical
DX: K76.0 Fatty (change of) liver, not elsewhere classified (principal); Z90.49 Acquired absence of other specified parts of digestive tract
CPT/HCPCS: 74178; Q9967

== ENCOUNTER 2017-08-05 02:03 | Observation (INO) | payer MEDICAID ==
[2015-08-03 12:03] VITALS: Ht 162.6 cm; Wt 108.9 kg
[2017-08-05] VITALS (13 sets, daily range): BP systolic 95–126; BP diastolic 54–85
[~2017-08-05] VITALS: Ht 162.6 cm; Wt 108.9 kg
[~2017-08-05 02:03] MED LIST changes: +CEFT1VIA57 IJ; +CEFT250V36 IM; -CITA-139 PO; +CITA-145 PO; +FLUC150T40 PO; -IOPAMIDOL 76% 75 ML INFUS BTL 75 ML ONE; +SCOP1PAT16 TD; +SULF-198 PO
[2017-08-05 06:10] LABS: PLATELET COUNT, AUTOMATED 220 K/uL (150-450)
[2017-08-05] MEDS: NORMOSOL R SOLN(*) 1000 ML BAG 1,000 ML IV PRN ×2 (06:18→10:20)
[2017-08-05] MEDS ORDERED: ceFAZolin(*) 2GM/D5W 50ML 50 ML IVPB ONE (06:30)
[2017-08-05] MEDS ORDERED: MIDAZOLAM 2 MG/2 ML VIAL IVP PRN (06:30)
[2017-08-05] MEDS ORDERED: FAMOTIDINE 20 MG TAB PO ONE (06:30)
[2017-08-05] MEDS ORDERED: PHENAZOPYRIDINE 200 MG TAB PO ONE (06:30)
[2017-08-05] MEDS ORDERED: LIDOCAINE/SOD BICARB 8.4% SYR ID ONE (06:30)
[2017-08-05] MEDS ORDERED: BUPIV/EPI 0.25% 1:200,000 50ML INFIL ONE (06:44)
[2017-08-05] MEDS ORDERED: SUGAMMADEX SOD 200 MG/2 ML SDV ONE (07:06)
[2017-08-05] MEDS ORDERED: PROPOFOL EMUL(*) 10MG/ML 20 ML 20 ML ONE (07:06)
[2017-08-05] MEDS ORDERED: LIDOCAINE MPF 1% 5 ML VIAL ONE (07:06)
[2017-08-05] MEDS ORDERED: DEXAMETHASONE SOD 4 MG/ML VIAL ONE (07:06)
[2017-08-05] MEDS ORDERED: fentaNYL CITR 250 MCG/5 ML AMP ONE (07:06)
[2017-08-05] MEDS ORDERED: ONDANSETRON 4 MG/2 ML VIAL ONE (07:06)
[2017-08-05] MEDS ORDERED: ROCURONIUM BROM 10 MG/ML 10 ML ONE (07:06)
[2017-08-05] MEDS ORDERED: KETAMINE HCL 200 MG/20 ML MDV ONE (07:14)
[2017-08-05] MEDS ORDERED: HYDROmorphone HCL 2 MG/ML SDV ONE (07:26)
[2017-08-05] MEDS ORDERED: KETOROLAC 30 MG/ML VIAL ONE (09:46)
[2017-08-05] MEDS ORDERED: fentaNYL CITR 100 MCG/2 ML AMP ONE (09:46)
[2017-08-05] MEDS ORDERED: ACETAMINOPHEN 325 MG TAB PO PRN (10:05)
[2017-08-05] MEDS ORDERED: METOCLOPRAMIDE 10 MG/2 ML SDV IVP PRN (10:05)
[2017-08-05] MEDS ORDERED: ONDANSETRON 4 MG/2 ML VIAL IVP PRN (10:05)
[2017-08-05] MEDS ORDERED: DLR(*) 1000 ML BAG 1,000 ML IV PRN (10:05)
[2017-08-05] MEDS ORDERED: MAGNESIUM HYDROXIDE* 30ML UDCP PO PRN (10:05)
[2017-08-05] MEDS ORDERED: INFLUENZA VIRUS VAC 0.5 ML SYR IM ONE (10:05)
--- NOTE | 2017-08-05 10:08 | Post Operative Note ---
Operative Note - WATCH ASSEMBLY INSTRUCTOR Operative Day Date: August 05, 2017 Physicians Surgeon: Karon Welding Machine Operator: Martín Anesthesia: GETA, Denny Diagnosis Pre-Op Diagnosis: Chronic pelvic pain, Dyspareunia, Dysmenorrhea Post-Op Diagnosis: Same Procedure Procedure(s): BLADE, BS, dx cysto Specimen Removed:(Maybe N/A): Uterus, cervix, bilateral fallopian tubes Fluids Fluids: IVF: 1800cc Estimated Blood Loss: 20cc DARREN FRENCH MD August 05, 2017 10:08
[2017-08-05] MEDS: SIMETHICONE 80 MG CHEW CHEW PRN (11:59)
[2017-08-05] MEDS ORDERED: OXYC-865 PO (12:39)
[2017-08-05] MEDS ORDERED: IBUP800T37 PO (12:39)
[2017-08-05] MEDS: HYDROmorphone HCL 2 MG/ML SDV IVP PRN ×2 (14:09→18:07)
[2017-08-05] MEDS: KETOROLAC 30 MG/ML VIAL IVP SCH ×2 (15:41→22:20)
--- NOTE | 2017-08-05 16:31 | OPERATIVE REPORT 1 ---
EVENT DATE: August 05, 2017 SURGEON: Solange Brantley MD ANESTHESIOLOGIST: John Denny MD ANESTHESIA: General endotracheal tube anesthetic. CONFIGURATION DEVELOPER: Asif Resendiz DO PREOPERATIVE DIAGNOSES 1. Chronic pelvic pain. 2. Dyspareunia. 3. Dysmenorrhea. POSTOPERATIVE DIAGNOSES 1. Chronic pelvic pain. 2. Dyspareunia. 3. Dysmenorrhea. PROCEDURES PERFORMED 1. Robotic-assisted total laparoscopic hysterectomy with bilateral salpingectomy. 2. Diagnostic cystoscopy. SPECIMENS REMOVED Uterus, cervix, bilateral fallopian tubes. INTRAVENOUS FLUIDS 1800 mL ESTIMATED BLOOD LOSS 20 mL INDICATIONS FOR PROCEDURE This patient is a 26-year-old, G3, P2, who presents with a longstanding history of pelvic pain. Her pain seemed to worsen over the last three months, during which time she had been to the Emergency Department many times. She had been evaluated for STI, endometriosis, and endometritis. None of the treatments have improved her pain. She is status post bilateral tubal ligation and is absolutely certain she does not want any more children. She presents with request for definitive management of possible gynecologic causes of this discomfort. Please see the history and physical for full details. She is admitted for the above-said procedure. DESCRIPTION OF PROCEDURE The patient was properly identified and taken to the operating room. She was placed under general endotracheal tube anesthetic and placed in the dorsal lithotomy position and prepped and draped in the usual fashion for a vaginal- assisted laparoscopic procedure. The patient received Ancef preoperatively for prophylactic antibiotics. Her SCDs were on and functioning. A bimanual exam was performed which revealed a midline small uterus. A speculum was then placed to visualize the cervix, which was noted to be nulliparous and without lesion. The anterior lip was grasped with an Allis clamp. The cervix was then serially dilated to 5 mm using Hegar dilators. A medium VCare uterine manipulator was then requested and assembled. This was placed in the uterine fundus, and the tip as insufflated. The balloon at the end of this manipulator appeared to have a leak in it and did not stay inflated. Therefore, a second VCare was requested. This time, a small VCare was utilized, and once the tip balloon was insufflated, it did remain in place. Two sutures which had previously been placed to the anterior lip of the cervix and then through the posterior lip of the cervix were passed through the VCare and tied down to allow the colpotomy ring to be against flush with the cervix and vaginal mucosa. The Pneumo Occluder was then advanced into the vagina and secured. A Pinon catheter was placed to drain the bladder. The patient was then placed in the supine position, and attention was turned to the laparoscopic portion of the procedure. The patient's abdomen was further examined, and she did have four prior incisions from her robotic-assisted cholecystectomy. The three on the right were planned to be utilized. Therefore, the one that was just to the right of the supraumbilical region was infiltrated with 0.25% Marcaine with epinephrine, and an 8 mm incision was made over this prior incision. A Veress needle was then tested and proven to be functioning. The Veress needle was passed through the incision into the abdominal cavity using the double click test. The pneumoperitoneum was then achieved. An 8 mm trocar was then introduced through this incision under direct visualization using a [employer] laparoscope. Once entry into the abdominal cavity was confirmed, the remaining location of the trocars were planned with two on the right and two on the left. The two 8 mm trocars were inserted under direct visualization on the patient's right side after infiltration of 0.25% Marcaine with epinephrine and making an 8 mm incision with the scalpel. On the patient's left side, an 11 mm incision was made on the most lateral incision and an 8 mm incision in the lower medial. These two ports were introduced under direct visualization. At this time, the patient was placed into Trendelenburg position, and the da Juan robotic system was prepared for docking. It was then brought in and aligned. The endoscope port was docked. The endoscope was then introduced, and targeting was performed on the uterus. The remaining arms were then docked without difficulty. The fenestrated bipolar graspers, ProGrasp, and monopolar scissors were then advanced under direct visualization to the pelvis, and energy was connected. At this time, I was able to break sterile attire and sit at the console to initiate the hysterectomy. Examination of the pelvis revealed no significant adhesions or abnormalities. The patient was status post tubal ligation with a segment of tube missing on the patient's right side. On the left side, there was a small hematoma-appearing lesion in the left tube approximately where a clip or ring may have been applied. In order to initiate the salpingectomy, the patient's right fallopian tube was identified and placed on gentle traction. The mesosalpinx was cauterized and transected, and this tube was removed through the 11 mm trocar without difficulty. The same procedure was performed on the patient's left side with excision of the entire tube and removal through the dietitian assistant port. The utero-ovarian ligament was then cauterized and transected, followed by opening of the round ligament on the patient's left side. Once the round ligament was transected, the broad ligament was able to be opened, and the anterior leaflet of the broad ligament was brought down to the anterior aspect of the lower uterine segment where the vesicouterine peritoneum was identified. There was a significant amount of scarring at this point; therefore, the posterior peritoneum was dissected further off the uterus on the left side down to the cervix. The uterine vessels were then identified, cauterized, and transected in order to allow the colpotomy to be performed. Attention was then turned to the patient's right side where the right utero-ovarian ligament was cauterized and transected, followed by the right round ligament. The broad ligament was then opened on the right side. An anterior leaflet was brought down to the midline where the prior vesicouterine peritoneum on the other side had been initiated. The posterior leaflet was then also brought down to the level of the colpotomy ring. The uterine vessels were then visualized and cauterized. These were taken down with monopolar scissors to the level where the colpotomy would need to be performed at this time. The bladder flap was further delineated, and the scar tissue was brought down. The bladder was able to be dissected at least 1 cm beyond the colpotomy ring in order to allow for closure of the vaginal cuff later. The colpotomy was then initiated anteriorly with identification of the colpotomy ring. The colpotomy was continued in a circumferential fashion until the entire colpotomy was completed. The uterus was then delivered through the vagina, and a bulb was placed in the vagina to maintain pneumoperitoneum. The cuff was then irrigated and noted to be hemostatic. An 0 Vicryl suture was utilized in a [id number] manner to reapproximate the tissue on the left corner. A V-Loc suture was then initiated on the right side to reapproximate the right corner, followed by following to the left in an unlocked manner. Once this was completely closed, the suture was followed backwards with two additional sutures towards the right which were locked. Once this was completed , the suture was cut, and the needles were removed. Copious irrigation was again performed revealing adequate hemostasis. Using the Reza-Beau device , the fascia of the dietitian assistant port was then closed using an 0 Vicryl with robotic assistance. All of the robotic instruments were removed, the robotic arms were undocked, the pneumoperitoneum was relieved, and the 11 mm fascia was tied down. All five skin incisions were reapproximated using a 4-0 Monocryl and closed with Dermabond. The Pinon catheter was removed from the bladder. The cystoscope was assembled and introduced through the urethra and into the bladder under direct visualization. The entire bladder was evaluated and noted to be normal without any lesion or sutures. Bilateral ureteral jets were noted with Pyridium- stained urine. The cystoscope was then removed, and the Pinon catheter was replaced. The patient tolerated this procedure well and recovered in the post-anesthesia care unit. All sponge, needle, and instrument counts were correct at the end of the procedure. RICARDO
--- NOTE | 2017-08-05 19:07 | OB/GYN Progress Note ---
OB Subjective Progress Notes Subjective Pt is doing well. Tolerating po. Some ambulation. Pain is doing okay so far. No concerns. OB Objective Physical Exam Vital Signs Date Time Temp Pulse Resp B/P (MAP) Pulse Ox O2 Delivery O2 Flow Rate FiO2 08/05/17 18:10 80 16 98 Room Air 2.0 08/05/17 15:30 98.1 102/63 (76) Intake and Output 08/06/17 07:00 Intake Total 3320 ml Output Total 2035 ml Balance 1285 ml Intake Oral 720 ml IV Total 2600 ml Output Urine Total 915 ml Emesis 1000 ml Estimated Blood Loss 20 ml Other 100 ml General Appearance: Alert/Awake/No Acute Distress Neurological: No Gross deficits Eyes: Normal Extraocular Movement & Vison Cardiovascular: Normal Rhythm & Peripheral Pulses Respiratory: No Respiratory Distress, Clear to Auscultation Abdomen: Soft, Non-Tender, Non-Distended Incision: Clean, Dry, Intact Extremities: No Cyanosis,Clubbing or Edema Integumentary: Skin Intact without Lesions or Rash Psychological: Alert & Oriented X3, Appropriate Mood & Affect Result Diagram: 08/05/17 0600 08/05/17 0600 Assessment and Plan Problems: (1) Status post laparoscopic hysterectomy Assessment & Plan: POD#0 s/p RATLH/BS. Routine postop orders. DARREN FRENCH MD August 05, 2017 19:07
[2017-08-05] MEDS: FAMOTIDINE 20 MG TAB PO SCH (20:54)
[2017-08-05] MEDS: DOCUSATE CALCIUM 240 MG CAP PO SCH (20:54)
[2017-08-06 02:30] VITALS: BP 95/62
[2017-08-06] MEDS: KETOROLAC 30 MG/ML VIAL IVP SCH (03:38)
[2017-08-06 06:46] LABS: PLATELET COUNT, AUTOMATED 205 K/uL (150-450)
[2017-08-06 07:45] VITALS: BP 98/62
--- NOTE | 2017-08-06 07:49 | OB/GYN Progress Note ---
OB Subjective Progress Notes Subjective Doing well. Pain controlled with oral medications. Tolerating regular diet. Ambulating. Voiding. Minimal vaginal bleeding. No chest pain, shortness of breath or dizziness. OB Objective Physical Exam Vital Signs Date Time Temp Pulse Resp B/P (MAP) Pulse Ox O2 Delivery O2 Flow Rate FiO2 08/06/17 02:30 98.6 71 20 95/62 (73) 95 Nasal Cannula 08/05/17 22:22 2.0 General Appearance: Alert/Awake/No Acute Distress Neurological: No Gross deficits Eyes: Normal Extraocular Movement & Vison Cardiovascular: Normal Rhythm & Peripheral Pulses Respiratory: No Respiratory Distress, Clear to Auscultation Abdomen: Soft, Non-Tender, Non-Distended Incision: Clean, Dry, Intact Extremities: No Cyanosis,Clubbing or Edema Integumentary: Skin Intact without Lesions or Rash Psychological: Alert & Oriented X3, Appropriate Mood & Affect Result Diagram: 08/06/17 0603 08/05/17 0600 Assessment and Plan Problems: (1) Status post laparoscopic hysterectomy Assessment & Plan: POD#1 s/p RATLH/BS. Meeting milestones. Desires discharge to home today. Discussed routine postoperative expectations. Questions answered. Follow up in clinic in 1-2wks for postop check. DARREN FRENCH MD August 06, 2017 07:49
--- NOTE | 2017-08-06 07:50 | OB/GYN Discharge Summary ---
Discharge Summary Reason for Hosp/Final Diag: (1) Status post laparoscopic hysterectomy Hospital Course & Plan: POD#1 s/p RATLH/BS. Meeting milestones. Desires discharge to home today. Discussed routine postoperative expectations. Questions answered. Follow up in clinic in 1-2wks for postop check. Lates Vital Signs Vital Signs Date Time Temp Pulse Resp B/P (MAP) Pulse Ox O2 Delivery O2 Flow Rate FiO2 08/06/17 02:30 98.6 71 20 95/62 (73) 95 Nasal Cannula 08/05/17 22:22 2.0 Weight (Pounds): 240 Result Diagram: 08/06/17 0603 08/05/17 0600 Condition: Improved Discharge: Home, Self Usp Meds Active Scripts Oxycodone Hcl/Acetaminophen (PERCOCET 5-325 MG TABLET) 1 Each Tablet, 1-2 TAB PO Q4H Y for pain, #40 TAB 0 Refills Prov:DARREN BRANTLEY MD 08/05/17 Zolpidem Tartrate (AMBIEN) 10 Mg Tablet, 1 TAB PO QHS for 1 Day, #1 TAB 0 Refills Prov:DARREN BRANTLEY MD 08/04/17 Oxycodone Hcl/Acetaminophen (PERCOCET 5-325 MG TABLET) 1 Each Tablet, 1-2 TAB PO Q4H Y for PAIN, #6 TAB 0 Refills Prov:DARREN BRANTLEY MD 08/04/17 Scopolamine (Scopolamine) 1 Mg/3 Day Patch.td.3, 1 PATCH TD ONCE for 1 Day, #1 [address] behind ear the night before surgery Prov:DARREN BRANTLEY MD 07/21/17 Reported Medications Albuterol Sulfate 90 Mcg/Act (PROAIR HFA 90 MCG/ACT) 8.5 Gm Hfa.aer.ad, 2 PUFF IH Q4-6H Y for ASTHMA, INHALER 07/21/17 Acetaminophen (TYLENOL) 325 Mg Tablet, 325 MG PO PRN, TAB 07/21/17 Ibuprofen (IBUPROFEN) 200 Mg Capsule, 1 CAP PO PRN, CAPSULE 07/21/17 Follow up Referrals: BALL [facility]KER - In Two Weeks @ [facility] with Darren Brantley Md Follow up in: 5-7 days Discharge Diet: As Tolerates Discharge Activity: No Heavy Lifting > 10lb, Pelvic Rest DARREN BRANTLEY MD August 06, 2017 07:50
[2017-08-06] MEDS: SIMETHICONE 80 MG CHEW CHEW PRN (08:00)
[2017-08-06] MEDS: DOCUSATE CALCIUM 240 MG CAP PO SCH (08:55)
[2017-08-06] MEDS: FAMOTIDINE 20 MG TAB PO SCH (08:55)
[2017-08-06] MEDS ORDERED: IBUPROFEN 800 MG TAB PO PRN (10:00)
== END 2017-08-06 07:50 | disposition home or self-care (01) ==
LOC: OR 02:03 → INTOOBSV 10:50 → PED 10:50
PROVIDERS: ADMIT Obstetrics & Gynecology; ATTEND Obstetrics & Gynecology
DX: R10.2 Pelvic and perineal pain (principal); N94.10 Unspecified dyspareunia; N94.6 Dysmenorrhea, unspecified
CPT/HCPCS: 36415; 58571; 84703; 85025; 88307; G0378; J1100; J1170; J1885; J2001; J2250; J2405; J2704; J3010; J3490; S2900; 82310; 82374; 82435; 82565; 82947; 84132; 84295; 84520; J0690

== ENCOUNTER → 2017-08-19 | Outpatient (REF) | payer MEDICAID ==
[2015-08-03 12:03] VITALS: BMI 37.8
[~2017-08-19] MED LIST changes: +TRAM-420 PO
[2017-08-19 14:18] LABS: PLATELET COUNT, AUTOMATED 346 K/uL (150-450)
== END ==
LOC: ZZSTITCHES 13:52
PROVIDERS: ATTEND Physician Assistant
DX: R10.9 Unspecified abdominal pain (principal); M54.6 Pain in thoracic spine
CPT/HCPCS: 85025

== ENCOUNTER → 2017-08-20 | Outpatient (CLI) | payer MEDICAID ==
[2015-08-03 12:03] VITALS: BMI 37.8
--- NOTE | 2017-08-20 15:59 | RADIOLOGY IMAGING REPORT ---
FACILITY: [facility] PATIENT NAME: Janeth Real : 1990 MR: [id number] V: [id number] EXAM DATE: ORDERING PHYSICIAN: NATHALY PALACIOS TECHNOLOGIST: Location: [facility] Patient: aJneth Real : 1990 Visit/Account:[id number] Date of Sevice: 08/20/2017 Exam type: IVP History: Left Flank pain, , hematuria CT down Comparison: None. Findings: Preliminary aircraft landing gear inspector film of abdomen reveals a nonspecific bowel gas pattern. No gross evidence of orga nomegaly or pathologic intra-abdominal calcifications. The patient was injected intravenously with 100 mL of [id number]. There were prompt symmetric nephro grams bilaterally. Contrast filled the pelvic calyceal systems and ureters without evidence of obstr uction. No abnormality of the urinary bladder was seen. The post void image was unremarkable. IMPRESSION: 1. Unremarkable IVP Report Dictated By: Khloe Kevni MD at 08/20/2017 3:40 PM Report E-Signed By: Khloe Kevin MD at 08/20/2017 3:54 PM WSN:[id number]
== END ==
LOC: LAB 13:44
PROVIDERS: ATTEND Student in an Organized Health Care Education/Training Program
DX: M54.9 Dorsalgia, unspecified (principal); R31.9 Hematuria, unspecified; R19.00 Intra-abdominal and pelvic swelling, mass and lump, unspecified site; R82.79 Other abnormal findings on microbiological examination of urine
CPT/HCPCS: 74410; 87088

== ENCOUNTER 2017-11-13 18:51 | Emergency (ER) | payer MEDICAID ==
[2015-08-03 12:03] VITALS: Wt 99.8 kg
[~2017-11-13 18:51] MED LIST changes: -CEFT1VIA57 IJ; +CEFT1VIA63 IJ; -CEFT250V36 IM; +CEFT250V37 IM; -CLON-303 PO; +CLON-304 PO; +IBUP-136 PO; -IBUP200C71 PO
--- NOTE | 2017-11-13 19:01 | ER Report ---
History and Physical Time Seen By MD: 19:00 Hx. of Stated Complaint: PT WAS SEEN AT [facility] ON THURSDAY, DX WITH BRONCHITIS, GIVEN ANTIBIOTICS, STERIODS AND NEBULIZER TREATMENTS. PT REPORTS STILL HAVING ISSUES "CATCHING HER BREATH" AND RIGHT SIDE OF CHEST HURTS HPI/ROS CHIEF COMPLAINT: Shortness of breath HISTORY OF PRESENT ILLNESS: This is a 27-year-old female who presents to the emergency department for shortness of breath. Patient states that she was seen at urgent care 2 days ago for shortness of breath, diagnosed with bronchitis given azithromycin, prednisone and an albuterol inhaler, states that she's not seen any real improvement since then. Patient states that she does have some right-sided pain with deep inspiration. Patient also has a dry nonproductive cough. Denies fevers or chills. The patient is hyperventilating during the examination. No other complaints at this time. REVIEW OF SYSTEMS: Respiratory: As above. Cardiovascular: As above. Gastrointestinal: No vomiting, no abdominal pain. Musculoskeletal: No back pain. Allergies: Coded Allergies: hydrocodone (Verified Allergy, Severe, RASH/THROAT SWELLING, 11/13/17) latex (Verified Adverse Reaction, Severe, RASH, 11/13/17) adhesive (Verified Adverse Reaction, Intermediate, RASH, 11/13/17) Home Meds Active Scripts Promethazine HCl/Codeine (Promethazine-Codeine Syrup) 6.25 Mg-10 Mg/5 Ml Syrup, 5 ML PO Q4-6H PRN for prn, #1 BOT 0 Refills Prov:NAVJOT BARBOSA AUTOMATIC COIN MACHINE MECHANIC-BC 11/13/17 Tramadol Hcl (TRAMADOL HCL) 50 Mg Tablet, 50 MG PO Q6H PRN for PAIN, #40 TAB 0 Refills Prov:DARREN FRENCH MD 08/27/17 Famotidine (PEPCID) 20 Mg Tablet, 20 MG PO BID, #60 TAB 1 Refill Prov:DARREN FRENCH MD 08/27/17 Reported Medications Orphenadrine Citrate (ORPHENADRINE CITRATE) 100 Mg Tabsr 11/13/17 Pregabalin (LYRICA) 75 Mg Capsule 11/13/17 Azithromycin 250 Mg Tab (AZITHROMYCIN 250 MG TAB) 250 Mg Tablet 11/13/17 Prednisone (PREDNISONE) 20 Mg Tablet 11/13/17 Albuterol Sulfate 90 Mcg/Act (PROAIR HFA 90 MCG/ACT) 8.5 Gm Hfa.aer.ad, 2 PUFF IH Q4-6H PRN for ASTHMA, INHALER 07/21/17 Discontinued Scripts Ibuprofen (IBUPROFEN) 800 Mg Tablet, 1 TAB PO Q8H PRN for pain, #60 TAB 1 Refill TAKE WITH FOOD EVERY 8 HOURS Prov:DARREN FRENCH MD 08/27/17 Past Medical/Surgical History The patient has a past medical and surgical history of migraines, heart murmur, pleural C, asthma, endoscopy, GERD, gallbladder disease, cholecystectomy, urinary tract infections, fibromyalgia, left wrist fracture, right leg fracture, pain in the lower back and hips, wears glasses, , depression, anxiety, mild PTSD, hysterectomy, D&C, tubal ligation and 2 moles excised. Reviewed Nurses Notes: Yes Hx Smoking: Yes (0.5 PACK PER DAY SINCE 2007) Smoking Status: Current: Every Day Smoker, Heavy Tobacco Smoker Hx Substance Use Disorder: No Hx Alcohol Use: No Constitutional Vital Sign - Last 24 Hours 11/13/17 11/13/17 11/13/17 11/13/17 18:56 19:00 19:15 19:16 Temp 97.6 Pulse 90 81 82 Resp 30 B/P (MAP) 118/77 109/68 (82) Pulse Ox 99 97 98 97 O2 Delivery Room Air Room Air 11/13/17 11/13/17 11/13/17 11/13/17 19:16 19:19 19:30 19:45 Pulse 78 90 99 84 Resp 24 20 B/P (MAP) 103/65 (78) Pulse Ox 96 98 11/13/17 20:00 Pulse 78 B/P (MAP) 98/69 (79) Pulse Ox 96 Physical Exam General Appearance: The patient is alert, has no immediate need for airway protection and no current signs of toxicity. Eyes: Pupils equal and round no injection. Respiratory: End expiratory wheezes in all valent[place]. Hyperventilating. Cardiac: regular rate and rhythm, no murmurs, clicks or rubs. Gastrointestinal: Abdomen is soft and non tender, no masses, bowel sounds normal. Musculoskeletal: Neck: Neck is supple and non tender. Extremities have full range of motion and are non tender. Skin: No rashes or lesions. DIFFERENTIAL DIAGNOSIS: After history and physical exam differential diagnosis was considered for shortness of breath including but not limited to pulmonary in fectious process, COPD, asthma, pulmonary embolus and congestive heart failure. Medical Decision Making EKG/Imaging Imaging Location: [facility] Patient: Janeth Real : 1990 Visit/Account:[id number] Date of Sevice: 11/13/2017 Examination: CHEST PA AND LAT Comparison: 03/13/2015 and earlier. History: Shortness of breath. Cough. Chest pain. Findings: No consolidation, nodule, or peribronchial inflammation. No pneumothorax, edema, or effusion. Cardiac and hilar contour size is within normal limits. Osseous structures are intact. IMPRESSION: Negative chest. Report Dictated By: Tom Park MD at 11/13/2017 7:46 PM Report E-Signed By: Tom Park MD at 11/13/2017 7:50 PM WSN:[id number] ED Course/Re-evaluation ED Course The patient was admitted to a room. A history and physical were obtained. Differential diagnoses were considered. A DuoNeb was given to the patient with marked improvement. Patient was feeling much better after one treatment. A two- view chest x-ray was negative for any acute cardiopulmonary process. The patient was sent home with 1 Phenergan With Codeine cup she will take prior to bed. A p rescription was sent to the patient's pharmacy for Phenergan with codeine. The patient has no other questions or concerns at this time and was discharged home. Patient instructed to follow-up with her primary care provider in 5-7 days if no improvement. Patient was agreeable with this plan of care and discharged home. Decision to Disposition Date: Nov 13, 2017 Decision to Disposition Time: 19:59 Depart Departure Latest Vital Signs Vital Signs Date Time Temp Pulse Resp B/P (MAP) Pulse Ox O2 Delivery O2 Flow Rate FiO2 11/13/17 20:00 78 98/69 (79) 96 11/13/17 19:19 20 11/13/17 19:16 Room Air 11/13/17 18:56 97.6 Impression: Primary Impression: Bronchitis Additional Impression: Cough Condition: Improved Disposition: HOME OR SELF-CARE Referrals: SANIA ADAMS MD (PCP) New Scripts Promethazine HCl/Codeine (Promethazine-Codeine Syrup) 6.25 Mg-10 Mg/5 Ml Syrup 5 ML PO Q4-6H PRN for prn, #1 BOT 0 Refills Prov: NAVJOT BARBOSA-HILDA 11/13/17 Patient Instructions: Acute Bronchitis (ED), Acute Cough (ED) Additional Instructions: Continue taking your current medications. Use the inhaler as directed. Take the Phenergan with codeine as directed. Take ibuprofen or Tylenol as needed for pain. Drink plenty of water. Get plenty of rest. If no improvement within the next 5-7 days follow-up with your primary care provider. Return to the emergency department for any other concerns or worsening symptoms. Problem Qualifiers NAVJOT BARBOSA-BC Nov 13, 2017 19:00
[2017-11-13] MEDS ORDERED: PREG75CA60 (19:03)
[2017-11-13] MEDS ORDERED: AZIT-18 (19:03)
[2017-11-13] MEDS ORDERED: ORP100 (19:03)
[2017-11-13] MEDS ORDERED: PRED20TA6 (19:03)
[2017-11-13] MEDS ORDERED: ALBUTEROL/IPRATROPIUM 3 ML NEB NEB ONE (19:10)
--- NOTE | 2017-11-13 19:54 | RADIOLOGY IMAGING REPORT ---
FACILITY: [facility] [place] PATIENT NAME: Janeth Real : 1990 MR: [id number] V: [id number] EXAM DATE: ORDERING PHYSICIAN: NAVJOT BARBOSA TECHNOLOGIST: Location: [facility] [place] Patient: Janeth Real : 1990 Visit/Account:[id number] Date of Sevice: 11/13/2017 Examination: CHEST PA AND LAT Comparison: 03/13/2015 and earlier. History: Shortness of breath. Cough. Chest pain. Findings: No consolidation, nodule, or peribronchial inflammation. No pneumothorax, edema, or effusio n. Cardiac and hilar contour size is within normal limits. Osseous structures are intact. IMPRESSION: Negative chest. Report Dictated By: Tom Park MD at 11/13/2017 7:46 PM Report E-Signed By: Tom Park MD at 11/13/2017 7:50 PM WSN:[id number]
[2017-11-13 20:00] VITALS: BP 98/69
[2017-11-13] MEDS ORDERED: PROMETH/COD SYRP 6.25-10MG/5ML PO ONE (20:05)
[2017-11-13] MEDS ORDERED: PROM473S4 PO (20:07)
== END 2017-11-13 20:16 | disposition home or self-care (01) ==
LOC: ER 19:01
DX: J40 Bronchitis, not specified as acute or chronic (principal); F17.210 Nicotine dependence, cigarettes, uncomplicated
CPT/HCPCS: 71046; 94640; 99283; J7620

== ENCOUNTER 2018-01-15 11:23 | Emergency (ER) | payer MEDICAID ==
[2015-08-03 12:03] VITALS: Wt 97.5 kg
[~2018-01-15 11:23] MED LIST changes: +AZIT-18; -CLON-304 PO; +CLON-333 PO; -METR-160 PO; +METR500T54 PO; +ORP100; +PRED20TA6; +PREG75CA60; +PROM473S4 PO
--- NOTE | 2018-01-15 11:30 | ER Report ---
History and Physical Time Seen By MD: 11:30 HPI/ROS CHIEF COMPLAINT: Shortness of breath HISTORY OF PRESENT ILLNESS: This is a 19-year-old female who presents to the emergency department for an onset of shortness of breath. 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 Patient had bronchitis couple of months ago, has resolved, patient states she's been doing just fine no recent colds or coughs. She did injure herself at work a couple weeks ago and is in a walking boot no fractures but she did sprain her ankle. No fevers or chills. No nausea or vomiting. Patient is not on control, she has had a hysterectomy. No rashes. Patient is able to speak in full sentences, however she is very anxious and hyperventilating. REVIEW OF SYSTEMS: Constitutional: No fever, no chills. Eyes: No discharge. ENT: No sore throat. Cardiovascular: As above. Respiratory: As above. Gastrointestinal: No abdominal pain, no vomiting. Genitourinary: No hematuria. Musculoskeletal: As above. Skin: No rashes. Neurological: No headache. Allergies: Coded Allergies: hydrocodone (Verified Allergy, Severe, RASH/THROAT SWELLING, 01/15/18) latex (Verified Adverse Reaction, Severe, RASH, 01/15/18) adhesive (Verified Adverse Reaction, Intermediate, RASH, 01/15/18) Home Meds Active Scripts Famotidine (PEPCID) 20 Mg Tablet, 20 MG PO BID, #60 TAB 1 Refill Prov:DARREN FRENCH MD 08/27/17 Reported Medications Orphenadrine Citrate (ORPHENADRINE CITRATE) 100 Mg Tabsr 11/13/17 Pregabalin (LYRICA) 75 Mg Capsule 11/13/17 Albuterol Sulfate 90 Mcg/Act (PROAIR HFA 90 MCG/ACT) 8.5 Gm Hfa.aer.ad, 2 PUFF IH Q4-6H PRN for ASTHMA, INHALER 07/21/17 Discontinued Reported Medications Azithromycin 250 Mg Tab (AZITHROMYCIN 250 MG TAB) 250 Mg Tablet 11/13/17 Prednisone (PREDNISONE) 20 Mg Tablet 11/13/17 Discontinued Scripts Promethazine HCl/Codeine (Promethazine-Codeine Syrup) 6.25 Mg-10 Mg/5 Ml Syrup, 5 ML PO Q4-6H PRN for prn, #1 BOT 0 Refills Prov:NAVJOT BARBOSA Christiano RESISTANCE MACHINE WELDER SETTER-BC 11/13/17 Tramadol Hcl (TRAMADOL HCL) 50 Mg Tablet, 50 MG PO Q6H PRN for PAIN, #40 TAB 0 Refills Prov:DARREN FRENCH MD 08/27/17 Past Medical/Surgical History The patient has a past medical and surgical history of migraines, heart murmur, pleural C, asthma, endoscopy, GERD, gallbladder disease, cholecystectomy, urinary tract infections, fibromyalgia, left wrist fracture, right leg fracture, pain in the lower back and hips, wears glasses, , depression, anxiety, mild PTSD, hysterectomy, D&C, tubal ligation and 2 moles excised. Reviewed Nurses Notes: Yes Hx Smoking: Yes (0.5 PACK PER DAY SINCE 2007) Smoking Status: Current: Every Day Smoker, Heavy Tobacco Smoker Hx Substance Use Disorder: No Hx Alcohol Use: No Constitutional Vital Sign - Last 24 Hours 01/15/18 01/15/18 01/15/18 01/15/18 11:23 11:28 11:29 11:53 Temp 97.4 Pulse ??? 79 63 Resp 40 13 B/P (MAP) 114/41 (65) 114/41 Pulse Ox 96 96 O2 Delivery Room Air 01/15/18 01/15/18 01/15/18 01/15/18 12:23 12:24 12:30 12:35 Pulse 90 Resp 15 30 B/P (MAP) 107/82 (90) 114/75 (88) Pulse Ox 95 01/15/18 01/15/18 01/15/18 01/15/18 13:00 13:05 13:30 13:35 Pulse 73 77 Resp 14 11 B/P (MAP) 113/91 (98) 124/87 (99) Pulse Ox 97 97 Physical Exam General Appearance: The patient is alert, has no immediate need for airway protection and no signs of toxicity, anxious. Eyes: Pupils equal and round no pallor or injection. ENT, Mouth: Mucous membranes are moist. Respiratory: There are no retractions, lungs are clear to auscultation. Cardiovascular: Regular rate and rhythm, no murmurs, clicks or rubs. Gastrointestinal: Abdomen is soft and non tender, no masses, bowel sounds normal. Neurological: Alert and oriented 4. Moving all extremities. Following all commands. No focal neuro deficits. Skin: Warm and dry, no rashes. No lesions. Musculoskeletal: Neck is supple non tender. Increased right rib pain with palpation mid axillary. Extremities are nontender, nonswollen and have full range of motion. DIFFERENTIAL DIAGNOSIS: After history and physical exam differential diagnosis was considered for shortness of breath including but not limited to pulmonary infectious process, COPD, asthma, pulmonary embolus and congestive heart f ailure. Medical Decision Making Data Points Result Diagram: 01/15/18 1130 01/15/18 1130 Laboratory Hematology Test 01/15/18 11:30 01/15/18 12:23 Red Blood Count 4.86 M/uL (4.17-5.56) Mean Corpuscular Volume 90.2 fL (80.0-96.0) Mean Corpuscular Hemoglobin 31.8 pg (26.0-33.0) Mean Corpuscular Hemoglobin Concent 35.2 g/dL (32.0-36.0) Red Cell Distribution Width 13.0 % (11.5-14.5) Mean Platelet Volume 8.8 fL (7.2-11.1) Neutrophils (%) (Auto) 61.1 % (39.4-72.5) Lymphocytes (%) (Auto) 29.8 % (17.6-49.6) Monocytes (%) (Auto) 6.6 % (4.1-12.4) Eosinophils (%) (Auto) 1.8 % (0.4-6.7) Basophils (%) (Auto) 0.7 % (0.3-1.4) Nucleated RBC Relative Count (auto) 0.1 /100WBC Neutrophils # (Auto) 6.3 K/uL (2.0-7.4) Lymphocytes # (Auto) 3.1 K/uL (1.3-3.6) Monocytes # (Auto) 0.7 K/uL (0.3-1.0) Eosinophils # (Auto) 0.2 K/uL (0.0-0.5) Basophils # (Auto) 0.1 K/uL (0.0-0.1) Nucleated RBC Absolute Count (auto) 0.01 K/uL D-Dimer Quantitative (PE/DVT) < 0.27 ug/ml (0-0.50) Sodium Level 141 mmol/L (137-145) Potassium Level 3.6 mmol/L (3.5-5.0) Chloride Level 112 mmol/L (98-107) Carbon Dioxide Level 20 mmol/L (22-31) Blood Urea Nitrogen 11 mg/dl (7-18) Creatinine 0.70 mg/dl (0.52-1.04) Glomerular Filtration Rate Calc > 60.0 Random Glucose 89 mg/dl (75-110) Calcium Level 10.1 mg/dl (8.4-10.2) Total Bilirubin 0.6 mg/dl (0.2-1.3) Aspartate Amino Transf (AST/SGOT) 31 U/L (0-35) Alanine Aminotransferase (ALT/SGPT) 38 U/L (0-56) Alkaline Phosphatase 64 U/L (0-126) Troponin I < 0.012 ng/ml Total Protein 7.1 g/dl (6.3-8.2) Albumin 4.1 g/dl (3.5-5.0) Urine Color Yellow Urine Clarity Slightly-cloudy Urine pH 5.0 pH (4.8-9.5) Urine Specific [place] 1.028 Urine Protein 30 mg/dL (NEGATIVE) Urine Glucose (UA) Negative mg/dL (NEGATIVE) Urine Ketones 20 mg/dL (NEGATIVE) Urine Blood Small (NEGATIVE) Urine Nitrite Negative (NEGATIVE) Urine Bilirubin Negative (NEGATIVE) Urine Urobilinogen 4.0 mg/dL (0.2-1.9) Urine Leukocyte Esterase Negative (NEGATIVE) Urine RBC 3 /HPF (0-2/HPF) Urine WBC 1 /HPF (0-5/HPF) Urine Squamous Epithelial Cells Many /LPF (</=FEW) Urine Bacteria Few /HPF (NONE-FEW) Urine Mucus Few /HPF (NONE-FEW) Chemistry Test 01/15/18 11:30 01/15/18 12:23 White Blood Count 10.3 k/uL (4.5-11.0) Red Blood Count 4.86 M/uL (4.17-5.56) Hemoglobin 15.4 g/dL (12.0-16.0) Hematocrit 43.8 % (34.0-47.0) Mean Corpuscular Volume 90.2 fL (80.0-96.0) Mean Corpuscular Hemoglobin 31.8 pg (26.0-33.0) Mean Corpuscular Hemoglobin Concent 35.2 g/dL (32.0-36.0) Red Cell Distribution Width 13.0 % (11.5-14.5) Platelet Count 271 K/uL (150-450) Mean Platelet Volume 8.8 fL (7.2-11.1) Neutrophils (%) (Auto) 61.1 % (39.4-72.5) Lymphocytes (%) (Auto) 29.8 % (17.6-49.6) Monocytes (%) (Auto) 6.6 % (4.1-12.4) Eosinophils (%) (Auto) 1.8 % (0.4-6.7) Basophils (%) (Auto) 0.7 % (0.3-1.4) Nucleated RBC Relative Count (auto) 0.1 /100WBC Neutrophils # (Auto) 6.3 K/uL (2.0-7.4) Lymphocytes # (Auto) 3.1 K/uL (1.3-3.6) Monocytes # (Auto) 0.7 K/uL (0.3-1.0) Eosinophils # (Auto) 0.2 K/uL (0.0-0.5) Basophils # (Auto) 0.1 K/uL (0.0-0.1) Nucleated RBC Absolute Count (auto) 0.01 K/uL D-Dimer Quantitative (PE/DVT) < 0.27 ug/ml (0-0.50) Glomerular Filtration Rate Calc > 60.0 Calcium Level 10.1 mg/dl (8.4-10.2) Total Bilirubin 0.6 mg/dl (0.2-1.3) Aspartate Amino Transf (AST/SGOT) 31 U/L (0-35) Alanine Aminotransferase (ALT/SGPT) 38 U/L (0-56) Alkaline Phosphatase 64 U/L (0-126) Troponin I < 0.012 ng/ml Total Protein 7.1 g/dl (6.3-8.2) Albumin 4.1 g/dl (3.5-5.0) Urine Color Yellow Urine Clarity Slightly-cloudy Urine pH 5.0 pH (4.8-9.5) Urine Specific [place] 1.028 Urine Protein 30 mg/dL (NEGATIVE) Urine Glucose (UA) Negative mg/dL (NEGATIVE) Urine Ketones 20 mg/dL (NEGATIVE) Urine Blood Small (NEGATIVE) Urine Nitrite Negative (NEGATIVE) Urine Bilirubin Negative (NEGATIVE) Urine Urobilinogen 4.0 mg/dL (0.2-1.9) Urine Leukocyte Esterase Negative (NEGATIVE) Urine RBC 3 /HPF (0-2/HPF) Urine WBC 1 /HPF (0-5/HPF) Urine Squamous Epithelial Cells Many /LPF (</=FEW) Urine Bacteria Few /HPF (NONE-FEW) Urine Mucus Few /HPF (NONE-FEW) Coagulation Test 01/15/18 11:30 D-Dimer Quantitative (PE/DVT) < 0.27 ug/ml Urinalysis Test 01/15/18 12:23 Urine Color Yellow Urine Clarity Slightly-cloudy Urine pH 5.0 pH (4.8-9.5) Urine Specific [place] 1.028 Urine Protein 30 mg/dL (NEGATIVE) Urine Glucose (UA) Negative mg/dL (NEGATIVE) Urine Ketones 20 mg/dL (NEGATIVE) Urine Blood Small (NEGATIVE) Urine Nitrite Negative (NEGATIVE) Urine Bilirubin Negative (NEGATIVE) Urine Urobilinogen 4.0 mg/dL (0.2-1.9) Urine Leukocyte Esterase Negative (NEGATIVE) Urine RBC 3 /HPF (0-2/HPF) Urine WBC 1 /HPF (0-5/HPF) Urine Squamous Epithelial Cells Many /LPF (</=FEW) Urine Bacteria Few /HPF (NONE-FEW) Urine Mucus Few /HPF (NONE-FEW) EKG/Imaging EKG Interpretation 12 lead EKG: EKG 1135. Rhythm: Normal sinus rhythm, ventricular rate 78 bpm. Barney: normal QRS: normal ST segments: No ST depression or elevation identified. The T wave in V2, V4, V5 and 6. No significant changes from the 11/13/2016 EKG. Imaging Location: [facility] Patient: Janeth Real : 1990 Visit/Account:[id number] Date of Sevice: 01/15/2018 2 VIEWS CHEST INDICATION: Respiratory distress. COMPARISON: 11/13/2017. FINDINGS: Cardiomediastinal silhouette and pulmonary vessels within normal limits. There is no focal infiltrate or lobar consolidation. There is no pneumothorax or pleural effusion. No nodule. Bilateral nipple shadows are present. Upper abdomen is unremarkable. No acute bony abnormality. IMPRESSION: 1. No acute cardiopulmonary process. Report Dictated By: Abimael Montoya at 01/15/2018 12:13 PM Report E-Signed By: Abimael Montoya at 01/15/2018 12:15 PM WSN:[id number] Location: [facility] Patient: Janeth Real : 1990 Visit/Account:[id number] Date of Sevice: 01/15/2018 Study: KUB SINGLE VIEW ABDOMEN Indication: Renal stone Comparison study: August 20, 2017 Findings: Supine views of the abdomen demonstrate that the renal fossae are obscured by bowel gas and stool. There is no abnormal calcification identified. There is no evidence of small bowel obstruction. The visualized bony structures are unremarkable. IMPRESSION: No abnormal calcification identified. Report Dictated By: Dilan Grace at 01/15/2018 1:41 PM Report E-Signed By: Dilan Grace at 01/15/2018 1:42 PM WSN:[id number] ED Course/Re-evaluation Clinical Indication for ER IV: Hydration, IV Access ED Course The patient was admitted to room. A history and physical obtained. Differential diagnoses were considered. An IV was started. A CBC, CMP and 1 L normal saline bolus were given. Patient was given 30 mg IV Norflex. 0.5 mg IV lorazepam. 324 mg chewable aspirin. 1000mg by mouth Tylenol. Laboratory studies unremarkable, negative d-dimer, concentrated urine showing some ketones, small amount of blood, urine bilirubin. Two-view chest x-ray was negative for any acute cardiopulmonary process. If the patient does have a history of kidney stones, has had multiple CT scans of the abdomen and pelvis, with a known history of kidney stones and the numerous CTs the patient and I decided to proceed with a KUB which was negative. When I entered the room to review the results with the patient, she was supine, eyes closed, resting comfortably. Patient wakes to voice, when asked how she was feeling, she states better. I did recommend relaxing and taking it easy over the course the weekend, taking ibuprofen and Tylenol as needed for aches and pains. I also recommended following up with her primary care provider and her urologist early next week for reevaluation. Patient expressed understanding and was discharged home. Patient was in agreement with this plan of care. 01/15/2018 12:54:02 pm bedside ultrasound was able to visualize the right kidney, no hydronephrosis noted. Decision to Disposition Date: Jan 15, 2018 Decision to Disposition Time: 13:55 Depart Departure Latest Vital Signs Vital Signs Date Time Temp Pulse Resp B/P (MAP) Pulse Ox O2 Delivery O2 Flow Rate FiO2 01/15/18 13:35 77 11 97 01/15/18 13:30 124/87 (99) 01/15/18 11:29 97.4 Room Air Impression: Primary Impression: Pleurisy Condition: Improved Disposition: HOME OR SELF-CARE Referrals: SANIA ADAMS MD (PCP) 5 Days MORGAN MAYS MD 5 Days Patient Instructions: Pleurisy (ED) Additional Instructions: Your blood work looks good. The chest x-ray does not show any infectious process such as pneumonia. There is a small amount of blood and urinary urine, this could be consistent with a kidney stone though on the x-ray no stone was identified. We decided not to proceed with a CT of the abdomen and pelvis is you have had kidney stones in the past, I would also recommend following up with Dr. Mays, the urologist whom you seen in the past as well as following up with Dr. Adams 1st thing next week. Although kidney stone is possible I do feel that this is more consistent with pleurisy. You can take 800 mg of ibuprofen every 8 hours, he can also alternate with 500- 1000 mg of Tylenol every 8 hours. Drink plenty of water. Get plenty of rest. Return to the emergency department for any concerns or worsening symptoms. NAVJOT BARBOSA RESISTANCE MACHINE WELDER SETTER-BC Jan 15, 2018 11:30
[2018-01-15] MEDS ORDERED: NS(*) 0.9% 1000 ML BAG 1,000 ML IV ONE (11:43)
[2018-01-15] MEDS ORDERED: LORazepam 2 MG/ML VIAL IVP ONE (11:45)
[2018-01-15] MEDS ORDERED: ASPIRIN 81 MG CHEW PO ONE (11:45)
[2018-01-15 11:52] LABS: PLATELET COUNT, AUTOMATED 271 K/uL (150-450)
--- NOTE | 2018-01-15 11:53 | EKG ---
FACILITY: [facility] [place] PATIENT NAME: NELIA GREENE : [id number] MR: [id number] V: [id number] EXAM DATE: ORDERING PHYSICIAN: NAVJOT BARBOSA TECHNOLOGIST: JOYA Test Reason : CP Blood Pressure : / mmHG Vent. Rate : 078 BPM Atrial Rate : 078 BPM P-R Int : 146 ms QRS Dur : 088 ms QT Int : 410 ms P-R-T Axes : 033 064 051 degrees QTc Int : 467 ms Sinus arrhytmia No acute appearing findings When compared with ECG of 13-NOV-2016 20:22, No significant change was found Confirmed by JAYSON ANDREWS ([id number] on 01/15/2018 9:13:16 PM Referred By: ROSALES Confirmed By:JAYSON ANDREWS
--- NOTE | 2018-01-15 12:19 | RADIOLOGY IMAGING REPORT ---
[facility] NAME: Janeth Real : 1990 MR: [id number] V: [id number] EXAM DATE: ORDERING PHYSICIAN: NAVJOT BARBOSA TECHNOLOGIST: [place] [facility] [place] : 1990 Visit/Account:[id number] Date of Sevice: 01/15/2018 2 VIEWS CHEST INDICATION: Respiratory distress. COMPARISON: 11/13/2017. FINDINGS: Cardiomediastinal silhouette and pulmonary vessels within normal limits. There is no focal infiltrate or lobar consolidation. There is no pneumothorax or pleural effusion. No nodule. Bilateral nipple shadows are present. Upper abdomen is unremarkable. No acute bony abnormality. IMPRESSION: 1. No acute cardiopulmonary process. Report Dictated By: Abimael Montoya at 01/15/2018 12:13 PM Report E-Signed By: Abimael Montoya at 01/15/2018 12:15 PM WSN:[id number]
[2018-01-15] MEDS ORDERED: ACETAMINOPHEN 500 MG TAB PO ONE (12:35)
[2018-01-15] MEDS ORDERED: ORPHENADRINE 60MG/2ML INJ IVP ONE (12:55)
[2018-01-15 13:30] VITALS: BP 124/87
--- NOTE | 2018-01-15 13:47 | RADIOLOGY IMAGING REPORT ---
FACILITY: [facility] PATIENT NAME: Janeth Real : 1990 MR: [id number] V: [id number] EXAM DATE: ORDERING PHYSICIAN: NAVJOT BARBOSA TECHNOLOGIST: Location: [facility] [place] Patient: Janeth Real : 1990 Visit/Account:[id number] Date of Sevice: 01/15/2018 Study: KUB SINGLE VIEW ABDOMEN Indication: Renal stone Comparison study: August 20, 2017 Findings: Supine views of the abdomen demonstrate that the renal fossae are obscured by bowel gas and stool. There is no abnormal calcification identified. There is no evidence of small bowel obstructio n. The visualized bony structures are unremarkable. IMPRESSION: No abnormal calcification identified. Report Dictated By: Dilan Grace at 01/15/2018 1:41 PM Report E-Signed By: Dilan Grace at 01/15/2018 1:42 PM WSN:[id number]
== END 2018-01-15 14:14 | disposition home or self-care (01) ==
LOC: ER 11:32
DX: R09.1 Pleurisy (principal); F17.210 Nicotine dependence, cigarettes, uncomplicated
CPT/HCPCS: 71046; 74018; 81001; 84484; 85025; 85379; 93005; 96361; 96374; 96375; 99284; J2060; J2360; J7030; 82040; 82247; 82310; 82374; 82435; 82565; 82947; 84075; 84132; 84155; 84295; 84450; 84460; 84520